=== PATIENT | male | born 1935 | race Caucasian/White ===

== ENCOUNTER 2018-05-25 11:01 | Outpatient (REF) | payer MEDICARE, OTHER, SELFPAY ==
[2018-05-25 14:08] LABS: COMMENT (LAB VIEW ONLY) 97.64 mg/dL; Microalb ug/mg Crea 101.9 ug/mg Cr
== END 2018-05-25 11:21 ==
LOC: LBN 11:01
PROVIDERS: PCP Family Medicine; Visit Provider Family Medicine
DX: E11.29 Type 2 diabetes mellitus with other diabetic kidney complication (principal)
CPT/HCPCS: 82043; 82570

== ENCOUNTER 2018-05-26 09:29 | Outpatient (CLI) | payer MEDICARE, OTHER, SELFPAY ==
[2018-05-26 10:20] LABS: Abs Immature Grans 0.02 k/cumm (0.0-0.09); Absolute Basophil Count 0.03 k/cumm (0.0-0.2); Absolute Lymphocyte Count 1.95 k/cumm (1.2-3.4); Absolute Monocyte Count 0.47 k/cumm (0.11-0.7); Absolute Neutrophil Count 3.01 k/cumm (1.2-6.7); Basophils % 0.5; Eosinophils % 3.5; HCT 46.9 % (40.0-50.0); HGB 15.5 g/dL (13.5-17.5); Immature Grans % 0.4; Lymphocytes % 34.3; Mean Corpuscular Hemoglobin 30.4 pg (27.0-33.0); Mean Platelet Volume 10.6 fL (8.0-11.0); Monocytes % 8.3; Platelet Count 227 x1000/uL (130-400); RBC Distribution Width 13.5 % (11.8-14.1); White Blood Cell Count 5.68 k/cumm (4.4-10.8)
[2018-05-26 11:40] LABS: Folate 17.5 ng/mL (8.6-20.0); TSH (W/Ref FT4) 1.19 uIU/mL (0.358-3.74); Vitamin B12 296 pg/mL (193-986)
== END 2018-05-26 09:49 ==
PROVIDERS: PCP Family Medicine; Visit Provider Family Medicine
DX: R53.83 Other fatigue (principal); I10 Essential (primary) hypertension; E11.9 Type 2 diabetes mellitus without complications; Z79.4 Long term (current) use of insulin
CPT/HCPCS: 36415; 82607; 82746; 84443; 85025

== ENCOUNTER 2020-03-27 07:45 | Outpatient (CLI) | payer MEDICARE, BC, OTHER, SELFPAY ==
[2020-04-01 11:32] LABS: SARS-CoV-2 RNA Undetected (Undetected); SARS-CoV-2 Specimen Source Nasopharynx
== END 2020-03-27 08:05 ==
PROVIDERS: PCP Family Medicine; Visit Provider Family Medicine
DX: Z11.59 Encounter for screening for other viral diseases (principal)
CPT/HCPCS: U0003

== ENCOUNTER 2021-02-27 02:10 | Outpatient (CLI) | payer MEDICARE, OTHER, SELFPAY ==
[2021-02-27 11:17] LABS: Anion Gap 10.1 mmol/L (3-11); BUN 29 mg/dL (7-18); CO2 27.9 mmol/L (21.0-32.0); CREATININE 1.3 mg/dL (0.70-1.30); Calcium 10.1 mg/dL (8.5-10.1); Chloride 103 mmol/L (98-107); Estimated GFR 52.47 (mL/min/1.73m2); Glucose 248 mg/dL (74-106); Potassium 5.7 mmol/L (3.5-5.1); Sodium 141 mmol/L (136-145)
== END 2021-02-27 02:11 | disposition home or self-care (01) ==
LOC: LBO 02:10
PROVIDERS: PCP Family Medicine; Visit Provider Family Medicine
DX: E11.9 Type 2 diabetes mellitus without complications (principal)
CPT/HCPCS: 36415; 80048

== ENCOUNTER 2021-04-23 03:25 | Outpatient (CLI) | payer MEDICARE, OTHER, SELFPAY ==
[2021-04-23 10:52] LABS: Anion Gap 10.1 mmol/L (3-11); BUN 24 mg/dL (7-18); CO2 26.9 mmol/L (21.0-32.0); CREATININE 1.3 mg/dL (0.70-1.30); Calcium 10.1 mg/dL (8.5-10.1); Chloride 104 mmol/L (98-107); Estimated GFR 52.47 (mL/min/1.73m2); Glucose 194 mg/dL (74-106); Potassium 4.7 mmol/L (3.5-5.1); Sodium 141 mmol/L (136-145)
== END 2021-04-23 03:26 | disposition home or self-care (01) ==
PROVIDERS: PCP Family Medicine; Visit Provider Family Medicine
DX: E87.5 Hyperkalemia (principal)
CPT/HCPCS: 36415; 80048

== ENCOUNTER 2021-12-17 03:16 | Outpatient (CLI) | payer MEDICARE, OTHER, SELFPAY ==
[2021-12-17 14:54] LABS: Anion Gap 9.8 mmol/L (3-11); BUN 29 mg/dL (7-18); CO2 27.2 mmol/L (21.0-32.0); CREATININE 1.2 mg/dL (0.70-1.30); Calcium 9.7 mg/dL (8.5-10.1); Chloride 104 mmol/L (98-107); Estimated GFR 57.41 (mL/min/1.73m2); Glucose 250 mg/dL (74-106); Potassium 5.1 mmol/L (3.5-5.1); Sodium 141 mmol/L (136-145); TSH (W/Ref FT4) 1.02 uIU/mL (0.36-3.74)
== END 2021-12-17 03:17 | disposition home or self-care (01) ==
PROVIDERS: PCP Family Medicine; Visit Provider Family Medicine
DX: R53.83 Other fatigue (principal); N18.9 Chronic kidney disease, unspecified
CPT/HCPCS: 36415; 80048; 84443

== ENCOUNTER 2022-02-13 13:49 | Outpatient (REF) | payer MEDICARE, OTHER, SELFPAY | END 2022-02-13 13:50 | disposition home or self-care (01) | LOC: LBN 13:49 | PROVIDERS: PCP Family Medicine; Visit Provider Physician Assistant Medical | DX: L02.611 Cutaneous abscess of right foot (principal) | CPT/HCPCS: 87070; 87205 ==

== ENCOUNTER → 2022-04-02 01:23 | Outpatient (CLI) | payer MEDICARE, BC, SELFPAY ==
--- NOTE | 2022-04-02 07:30 | DI.US_ITS ---
Exam(s) US ABDOMEN EXAM: US ABDOMEN CLINICAL HISTORY: Nausea originating in upper abdomen, nausea, R11.0 TECHNIQUE: Ultrasound abdomen performed using standard protocol. COMPARISON: US ABDOMEN ULTRASOUND (P) from 12/29/2017 FINDINGS: ABDOMINAL AORTA AND IVC: Visualized portions normal caliber. PANCREAS: Normal where visualized. LIVER: Diffuse increased echogenicity of the liver. The liver measures 20.6 cm long. Hepatopedal fl ow in the Portal Vein. GALLBLADDER:No evidence of cholelithiasis. No evidence of wall thickening. No pericholecystic fluid i dentified. There is a 2 mm echogenic focus along the wall of the gallbladder likely reflecting a tiny polyp. BILIARY SYSTEM: Common bile duct measures < 7 mm. No intrahepatic biliary ductal dilation. GUZMAN'S SIGN: Negative. KIDNEYS: Kidneys are symmetric in size. No evidence of renal calculi. No evidence of hydronephrosis. No renal mass or cyst identified. SPLEEN: Not enlarged. ASCITES: None seen. IMPRESSION: 1. Hepatic steatosis and hepatomegaly. 2. 2 mm gallbladder polyp. DATA REPOSITORY:
== END ==
PROVIDERS: PCP Family Medicine; Visit Provider Family Medicine
DX: K76.0 Fatty (change of) liver, not elsewhere classified (principal); K82.4 Cholesterolosis of gallbladder
CPT/HCPCS: 76700

== ENCOUNTER 2022-04-15 21:27 | Outpatient (CLI) | payer MEDICARE, SELFPAY ==
--- NOTE | 2022-04-15 | DI.RAD_ITS ---
Exam(s) XR FOOT RT COMPLETE EXAM: XR FOOT RT COMPLETE CLINICAL HISTORY: FOOT ULCER; RIGHT--L97.519. TECHNIQUE: 2D digital imaging was performed. Three views. COMPARISON: No exams were available for comparison FINDINGS: BONES: No acute fracture is present. No bony destructive lesion is seen. Plantar calcaneal spur. JOINTS: No dislocation present. Mild degenerative changes. SOFT TISSUE: Mild vascular calcifications. No foreign body or abnormal gas collection. IMPRESSION: Unremarkable radiographs of the right foot. DATA REPOSITORY: RADIATION DOSE DELIVERED:
[2022-04-15 21:30] LABS: Abs Immature Grans 0.03 10^3/uL (0.0-0.06); Absolute Basophil Count 0.07 10^3/uL (0.0-0.2); Absolute Eosinophil Count 0.26 10^3/uL (0.0-0.7); Absolute Lymphocyte Count 2.64 10^3/uL (1.2-3.4); Absolute Neutrophil Count 3.78 10^3/uL (1.2-6.7); Basophils % 0.9; Eosinophils % 3.4; HCT 42.4 % (40.0-50.0); HGB 13.7 g/dL (13.5-17.5); Immature Grans % 0.4; Lymphocytes % 34.8; MCH 30.2 pg (27.0-33.0); MCHC 32.3 % (32.0-36.0); MCV 93 fL (80-95); MPV 11.5 fL (8.0-11.0); Monocytes % 10.6; Neutrophils % 49.9; Platelet Count 241 10^3/uL (130-400); RBC 4.54 10^6/uL (4.36-5.78); RDW 12.8 % (11.8-14.1); RDW-SD 43.9 fL; WBC 7.58 10^3/uL (4.4-10.8)
[2022-04-15 21:38] LABS: ESR 1 mm/hr (0-20)
[2022-04-15 21:43] LABS: ALT 20 U/L (16-63); AST 18 U/L (15-37); Alkaline Phosphatase 68 U/L (46-116); Anion Gap 10.3 mmol/L (3-11); BUN 33 mg/dL (7-18); Bilirubin, Total 0.3 mg/dL (0.2-1.0); CO2 26.7 mmol/L (21.0-32.0); CREATININE 1.1 mg/dL (0.70-1.30); Calcium 9.4 mg/dL (8.5-10.1); Chloride 103 mmol/L (98-107); Glucose 162 mg/dL (74-106); Potassium 5.6 mmol/L (3.5-5.1); Sodium 140 mmol/L (136-145); Total Protein 7.2 g/dL (6.4-8.2)
== END 2022-04-15 21:28 | disposition home or self-care (01) ==
LOC: LBN 04-16 21:41
PROVIDERS: Nurse Practitioner Family; PCP Family Medicine; Visit Provider Family Medicine
DX: L97.519 Non-pressure chronic ulcer of other part of right foot with unspecified severity (principal)
CPT/HCPCS: 80053; 85652; 73630; 85025

== ENCOUNTER 2022-11-19 11:47 | Outpatient (REF) | payer MEDICARE, OTHER, SELFPAY ==
[2022-11-19 15:42] LABS: COVID-19 PCR Negative (Negative); Influenza A PCR Negative (Negative); Influenza B PCR Negative (Negative); RSV PCR Negative (Negative)
[2022-11-19 15:43] LABS: Source Nasopharynx
== END 2022-11-19 11:48 | disposition home or self-care (01) ==
LOC: LBN 11:47
PROVIDERS: PCP Family Medicine; Visit Provider Nurse Practitioner
DX: R05.8 Other specified cough (principal); R09.89 Other specified symptoms and signs involving the circulatory and respiratory systems; Z20.822 Contact with and (suspected) exposure to COVID-19
CPT/HCPCS: 87637

== ENCOUNTER 2022-11-19 11:49 | Outpatient (CLI) | payer MEDICARE, OTHER, SELFPAY ==
--- NOTE | 2022-11-19 11:15 | DI.RAD_ITS ---
Exam(s) XR CHEST 2V PA LATERAL EXAM: XR CHEST 2V PA LATERAL CLINICAL HISTORY: cough for 2 weeks, worsening COUGH R05.9 FATIGUE R53.83 TECHNIQUE: 2D digital imaging was performed of the chest. Images were obtained. PA and lateral v iews were obtained. COMPARISON: CR CHEST 2 VIEWS PA,LAT from 09/12/2012 FINDINGS: MEDIASTINUM: Normal. HEART: Normal. PULMONARY VASCULATURE: Normal. LUNGS: The lungs are hyperinflated suggesting underlying COPD. There are increased lung markings in the left base medially which may represent atelectasis or infiltrate. PLEURAL SPACE: No pleural effusion or pneumothorax. BONE:Within normal limits for the patient's age. OTHER FINDINGS:Normal. IMPRESSION: 1. Atelectasis, scarring or infiltrate in the medial left lung base. 2. COPD. DATA REPOSITORY: RADIATION DOSE DELIVERED:
== END 2022-11-19 12:09 ==
PROVIDERS: PCP Family Medicine; Visit Provider Nurse Practitioner
DX: R05.8 Other specified cough (principal); R53.83 Other fatigue; J44.9 Chronic obstructive pulmonary disease, unspecified; R91.8 Other nonspecific abnormal finding of lung field
CPT/HCPCS: 71046

== ENCOUNTER 2022-12-18 17:55 | Outpatient (CLI) | payer MEDICARE, OTHER, SELFPAY ==
--- NOTE | 2022-12-18 14:30 | DI.RAD_ITS ---
Exam(s) XR KNEE RT 3V AP,LAT,ARTUR EXAM: XR KNEE RT 3V AP,LAT,ARTUR INDICATION: landed on knees M25.561 W19.XXXA FALL Z96.653 ARTIFICIAL KNEE. COMPARISON: CR RIGHT KNEE LIMITED 1 OR 2 VIEW from 05/25/2013 TECHNIQUE: 2D digital imaging was performed. Two views. FINDINGS: There has been no change in the alignment of the total knee prosthesis. No suspicious bony lucencies are identified. No visible joint effusion. Vascular calcifications again noted. DATA REPOSITORY: RADIATION DOSE DELIVERED:
--- NOTE | 2022-12-18 14:30 | DI.RAD_ITS ---
Exam(s) XR KNEE LT 3V AP,LAT,ARTUR EXAM: XR KNEE LT 3V AP,LAT,ARTUR INDICATION: bilateral knee pain s/p fall 12/11/22 M25.562 W19.XXXA FALL Z96.653. COMPARISON: CR XR KNEE RT 3V AP,LAT,ARTUR from 12/18/2022 TECHNIQUE: 2D digital imaging was performed. Three views. FINDINGS: There has been no change in the alignment of the total knee prosthesis. There is no evidence of frac ture or joint effusion. Vascular calcifications again noted. Impression: No acute abnormality. DATA REPOSITORY: RADIATION DOSE DELIVERED:
== END 2022-12-18 18:15 ==
PROVIDERS: PCP Family Medicine; Visit Provider Nurse Practitioner
DX: M25.561 Pain in right knee (principal); M25.562 Pain in left knee; Z96.653 Presence of artificial knee joint, bilateral; Z91.81 History of falling
CPT/HCPCS: 73562

== ENCOUNTER 2023-01-18 08:35 | Emergency (ER) | payer MEDICARE, OTHER, SELFPAY ==
[2023-01-18 08:38] VITALS: BP 134/69; PULSE 78; RESP 18; TEMP 36.5; O2SAT 99
--- NOTE | 2023-01-18 09:05 | W.ED.GENAD ---
Discharge Plan Discharge Details Chief Complaint: Cellulitis Clinical Impression: Open wound of left lower extremity Primary Care Provider: Gilbert Hudson ED Provider: Abe Gutierres Home Meds and New Rx's Prescriptions: Continued (DME) lancets [OneTouch Delica Lancets] 33 gauge misc 1 ea Miscellaneous DAILY Qty: 100 3RF Rx Instructions: to check BS for DM E11.9 management to keep A1c <8. semaglutide 0.25 mg or 0.5 mg(2 mg/1.5 mL) pen injector 0.25 mg subcut QWEEK Qty: 1.5 0RF Hold Instructions: Home Medication placed on hold at Doctor's office Rx Instructions: for 4 doses (DME) slippers See Rx Instructions .Route .MEDSUPPLY Qty: 1 1RF Rx Instructions: Patient had fall, slipped. Bled onto slippers, needs new pair. Systane Ultra 0.4-0.3 % drops 1 drp OP QID PRN Rx Instructions: per after visit summary 03/23/20 [facility] losartan 25 mg tablet 25 mg PO BID Qty: 180 3RF Rx Instructions: for bp control under 140/80 Novolin N NPH U-100 Insulin 100 unit/mL suspension See Rx Instructions SC .COMPLEX Qty: 40 12RF Rx Instructions: subcut t10 units qnoon and 50 units qhs; To keep HbA1c below 6.5 gemfibrozil 600 mg tablet 600 mg PO BID Qty: 180 3RF Rx Instructions: for lipids and vascular disease metformin 500 mg tablet extended release 24hr 1,000 mg PO BID Qty: 360 3RF metoprolol tartrate 25 mg tablet 12.5 mg PO BID Qty: 90 3RF Rx Instructions: 0.5 of a 25 mg tablet, twice daily, for BP (DME) insulin syringe-needle U-100 [BD Insulin Syringe Ultra-Fine] 0.5 mL 31 gauge x 5/16 syringe See Dose Instructions .ROUTE .MEDSUPPLY Qty: 100 6RF Dose Instruction: As directed Rx Instructions: to administer Novolin N daily at 7 pm (DME) blood sugar diagnostic Strip 1 ea Miscellaneous BID Qty: 200 11RF Rx Instructions: For DM E11.39 to test blood sugar BID and maintain A1C less than 7 aspirin [Cadence Low Dose Aspirin] 81 MG tablet,delayed release (DR/EC) 81 mg PO DAILY Discharge Instructions Additional Instructions: You were seen in the emergency department for your left lower extremity wound which was redressed. If you have any fevers or any foul-smelling drainage or pus from your wound please return to the emergency department. Please follow-up with wound care team as previously scheduled tomorrow. Discharge Data Discharge Date/Time-TO BE ENTERED AT DEPARTURE: 01/18/23 09:51 Medical Decision Making This is an overall very well-appearing normothermic and not tachycardic 87-year-old male with concern over increased drainage from his left lower extremity wound with signs of superinfection and no systemic symptoms of illness. Patient has close outpatient wound care follow-up so his wound was redressed in the emergency department and he was discharged with return indications including any foul-smelling drainage from his wound any signs of pus, and any signs of systemic illness such as fevers and chills. He had no recurrent falls to suggest benefit from repeat plain films. He had no crepitance nor pain out of proportion to suggest necrotizing soft tissue infection. His feet were warm and well-perfused so I was not concerned for acute vascular insult. His wound on the anterior aspect of the left tibia is certainly in a watershed area and concerning for the possibility of arterial insufficiency complicated by his diabetes. If it has not been completed in the past he may be a candidate for lower extremity angiogram with runoffs but I do not feel that he requires this emergently in the emergency department as I am not concerned for critical limb ischemia. He understood his return indications. His wound was redressed in the emergency department and he was discharged with wound clinic follow-up. HPI General Date/Time Provider Initiated Documentation: 01/18/23 08:50. HPI Narrative: This is an 87-year-old male with a history of atherosclerotic cardiovascular disease and type 2 diabetes controlled on oral medications who follows with wound care in setting of bilateral lower extremity wounds now in the emergency department in setting of increased drainage from his left lower extremity wound over the past 24 hours. Patient reports that he initially fell approximately 1 month ago. X-rays were obtained at that time. Yesterday he noted that he had increased drainage from his left lower extremity wound. He noticed that this continues this morning. He does not have wound care clinic follow-up until tomorrow morning so he came in the emergency department to have his wound redressed. The drainage his drainage was clear. He denies any foul-smelling drainage. He has not had any increased pain in his left foot. He is not having any pus draining from his left lower extremity wound. He has had no fevers chills nausea vomiting chest pain or shortness of breath. Related Data Home Medications Medication Instructions Recorded Confirmed aspirin 81 mg tablet,delayed 81 mg PO DAILY 05/17/13 01/16/23 release (Cadence Low Dose Aspirin) lancets 33 gauge (Skim.itTouch Delica #100 ea 05/26/19 01/16/23 Lancets) peg 400-propylene glycol 0.4 %-0.3 1 drp ophthalmic (eye) QID PRN 03/26/20 01/16/23 % eye drops (Systane Ultra) losartan 25 mg tablet 25 mg PO BID #180 tab-caps 02/27/22 01/16/23 insulin NPH isoph U-100 human 100 See Rx Instructions subcut 03/25/22 01/16/23 unit/mL subcutaneous suspension .COMPLEX #40 mL (Novolin N NPH U-100 Insulin isophane) gemfibrozil 600 mg tablet 600 mg PO BID #180 tab-caps 04/15/22 01/16/23 semaglutide 0.25 mg or 0.5 mg (2 0.25 mg (0.2 mL) subcut QWEEK #1.5 10/07/22 01/16/23 mg/1.5 mL) subcutaneous pen mL injector metformin 500 mg tablet,extended 1,000 mg PO BID #360 tabs 11/06/22 01/16/23 release 24hr metoprolol tartrate 25 mg tablet 12.5 mg PO BID #90 tabs 11/18/22 01/16/23 insulin syringe-needle U-100 0.5 #100 ea 12/08/22 01/16/23 mL 31 gauge x 5/16 (BD Insulin Syringe Ultra-Fine) blood sugar diagnostic #200 strips 12/18/22 01/16/23 slippers #1 ea 12/18/22 01/16/23 Previous Rx's Medication Instructions Recorded lancets 33 gauge (OneTouch Delica #100 ea 05/26/19 Lancets) losartan 25 mg tablet 25 mg PO BID #180 tab-caps 02/27/22 insulin NPH isoph U-100 human 100 See Rx Instructions subcut 03/25/22 unit/mL subcutaneous suspension .COMPLEX #40 mL (Novolin N NPH U-100 Insulin isophane) gemfibrozil 600 mg tablet 600 mg PO BID #180 tab-caps 04/15/22 semaglutide 0.25 mg or 0.5 mg (2 0.25 mg (0.2 mL) subcut QWEEK #1.5 10/07/22 mg/1.5 mL) subcutaneous pen mL injector metformin 500 mg tablet,extended 1,000 mg PO BID #360 tabs 11/06/22 release 24hr metoprolol tartrate 25 mg tablet 12.5 mg PO BID #90 tabs 11/18/22 insulin syringe-needle U-100 0.5 #100 ea 12/08/22 mL 31 gauge x 5/16 (BD Insulin Syringe Ultra-Fine) blood sugar diagnostic #200 strips 12/18/22 slippers #1 ea 12/18/22 Allergies Allergy/AdvReac Type Severity Reaction Status Date / Time omeprazole AdvReac Intermediate diarrhea Verified 01/16/23 11:46 atorvastatin calcium AdvReac muscle pain Verified 01/16/23 11:46 [From Lipitor] ezetimibe AdvReac fatique, Verified 01/16/23 11:46 [From Vytorin 10-10] blurred vision lisinopril AdvReac cough Verified 01/16/23 11:46 lovastatin AdvReac muscle pain Verified 01/16/23 11:46 pravastatin AdvReac muscle pain Verified 01/16/23 11:46 simvastatin AdvReac fatique, Verified 01/16/23 11:46 [From Vytorin 10-10] blurred vision General Stated Complaint: Cellulitis LIBIA: 4 PFSH All Active Problems (Updated 01/18/23 @ 09:24 by Abe Gutierres MD) Open wound of left lower extremity (Acute) Onychomycosis of multiple toenails with type 2 diabetes mellitus (Acute 12/09/22) Ingrowing nail (Acute 12/09/22) Nail dystrophy (Acute 12/09/22) Pseudophakia (Acute) Posterior vitreous detachment, left eye (Acute) Age-related macular degeneration, dry (Chronic) left eye, early right eye without fld both eyes 01/2022 Hepatic steatosis (Acute) Chronic kidney disease (Chronic) Other atherosclerosis of upper [place] arteries of extremities, bilateral legs (Acute) Nonproliferative diabetic retinopathy without macular edema associated with type 2 diabetes mellitus (Acute) Nocturnal leg cramps (Acute) Seborrheic keratoses (Acute) 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) Low back pain (Acute 09/17/11) Activity intolerance related to fatigue (Acute 09/17/11) Cortical senile cataract (Acute 09/17/11) Localized osteoarthrosis, lower leg (Acute 09/17/11) PVD (peripheral vascular disease) (Acute 09/17/11) Primary malignant neoplasm of prostate (Acute 03/06/97) Sleep disorder (Chronic 07/15/13) Never okay, due to awakening 2AM 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 Clarke 05-25-2013 History of - myocardial infarction (Chronic) Silent PR Diabetes mellitus type 2 (Chronic) Hyperlipidemia (Chronic) PVC's (Chronic) Medical History (Updated 01/18/23 @ 09:24 by Abe Gutierres MD) ASCVD (arteriosclerotic cardiovascular disease) with MPI 08/21/22 also noted by industrial recruiter at visit. Cataracts, both eyes Colon adenoma Depression Diabetes type 2, controlled Last HgA1C 7.1 DJD (degenerative joint disease) History of malignant neoplasm of prostate HTN (hypertension) Hyperlipidemia Low back pain Mild nonproliferative diabetic retinopathy Obesity Prostate cancer PVD (peripheral vascular disease) scarring on chest X-ray Tobacco quit date established March 2016 Surgical History (Updated 07/25/22 @ 09:17 by Sheryl Lopez RN) Cataract, left eye (03/13/16) Cristal Torres MD Colonoscopy - IV Sedation [id number] Colonoscopy - MAC (05/09/16) EGD - MAC (08/25/16) Extraction of cataract (02/01/15) Right eye; Dr. Cristal Torres History of surgery Left total knee. Prostatectomy for prostate cancer ORIF left hymerus that was done many years agol. T & A done as a child. I & D perianal abscess (05/07/15) Dr. Beverly Daly Prostectomy, Suprapubic (03/06/97) Dr Dexter, prostate cancer Replacement of total knee joint Right- cemented 05/25/13 Dr. Clarke Lt. -2008 Dr. Clarke synvisc injection rt knee Family History Mother , age 63 Heart disease Father Stroke Social History (Updated 12/16/21 @ 11:28 by Indy Ladd LPN) Smoking/Tobacco Use Status: Former Tobacco Use Tobacco: How many years used: 25 Smoking risk assessment performed?: Yes Alcohol Intake: never Drug use: Never Substance use type: does not use Household members: none Number of Children: 0 Communication Needs: Corrective Lenses Do you need help understanding health information?: Rarely How often do you talk on the phone with friends or family?: twice per week How often do you get together with friends or relatives?: twice per week Panel score (0-1 are the most socially isolated patients): 1 What type of physical activity do you participate in: regular exercise and other Details: exercises 3x/week Frequency: 3-4 times per week Seatbelt use: always 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 Head: Normocephalic, atraumatic. Eye: Pupils equal, round reactive to light. Extraocular eye movements intact. No conjunctival injection. No scleral icterus. Ear, nose, mouth, throat: Grossly normal inspection. Normal voice, handling secretions normally. Neck: Trachea midline. Cardiovascular: Well-perfused distal extremities. Respiratory: Nonlabored respiration. Gastrointestinal: Nondistended abdomen. Musculoskeletal: No edema. Moving all 4 extremities spontaneously. Skin: On the left lower extremity, anterior aspect of the tibia there is an approximately 2 x 2 centimeter open wound with no surrounding erythema nor crepitance. Distal left lower extremity warm and well-perfused with cap refill less than 2 seconds in the left toes. Photo of left lower extremity wound as follows: Neurologic: Alert and appropriate, no apparent acute deficits. Psychiatric: Mood and manner are appropriate. Grooming and personal hygiene are appropriate. Course Vital Signs Vital signs: Vital Signs Temperature 36.5 C 01/18/23 08:38 Pulse 78 01/18/23 08:38 Respiratory Rate 18 01/18/23 08:38 Blood Pressure 134/69 01/18/23 08:38 Pulse Oximetry 99 01/18/23 08:38 Temperature 36.5 C 01/18/23 08:38 Temperature Source Oral 01/18/23 08:38 Pulse 78 01/18/23 08:38 Respiratory Rate 18 01/18/23 08:38 Blood Pressure 134/69 01/18/23 08:38 Pulse Oximetry 99 01/18/23 08:38 Oxygen Delivery Method Room Air 01/18/23 08:38 Oxygen Flow Rate 0 01/18/23 08:38 Pain Level 0 01/18/23 08:38
[2023-01-18 09:48] VITALS: BP 132/61; PULSE 82; RESP 18; O2SAT 97
== END 2023-01-18 09:51 | disposition home or self-care (01) ==
PROVIDERS: Emergency Provider Emergency Medicine; PCP Family Medicine
DX: E11.9 Type 2 diabetes mellitus without complications; Z79.84 Long term (current) use of oral hypoglycemic drugs; W19.XXXA Unspecified fall, initial encounter; I10 Essential (primary) hypertension; S81.802A Unspecified open wound, left lower leg, initial encounter; L03.116 Cellulitis of left lower limb
CPT/HCPCS: 99281; 99282

== ENCOUNTER 2023-02-06 15:31 | Emergency (ER) | payer MEDICARE, OTHER, SELFPAY ==
[2023-02-06 15:31] VITALS: BP 153/61; PULSE 110; RESP 18; TEMP 37; O2SAT 97
[2023-02-06 15:57] VITALS: RESP 20
--- NOTE | 2023-02-06 16:02 | ED.GENADUL_ITS ---
Discharge Plan Disposition Patient Disposition: Home Discharge Details Chief Complaint: Vascular Clinical Impression: Bleeding from wound Primary Care Provider: Gilbert Hudson ED Provider: Nazario Marcano Home Meds and New Rx's Prescriptions: No Action (DME) lancets [OneTouch Delica Lancets] 33 gauge misc 1 ea Miscellaneous DAILY Qty: 100 3RF Rx Instructions: to check BS for DM E11.9 management to keep A1c <8. semaglutide 0.25 mg or 0.5 mg(2 mg/1.5 mL) pen injector 0.25 mg subcut QWEEK Qty: 1.5 0RF Hold Instructions: Home Medication placed on hold at Doctor's office Rx Instructions: for 4 doses (DME) slippers See Rx Instructions .Route .MEDSUPPLY Qty: 1 1RF Rx Instructions: Patient had fall, slipped. Bled onto slippers, needs new pair. Systane Ultra 0.4-0.3 % drops 1 drp OP QID PRN Rx Instructions: per after visit summary 03/23/20 [facility] losartan 25 mg tablet 25 mg PO BID Qty: 180 3RF Rx Instructions: for bp control under 140/80 Novolin N NPH U-100 Insulin 100 unit/mL suspension See Rx Instructions SC .COMPLEX Qty: 40 12RF Rx Instructions: subcut t10 units qnoon and 50 units qhs; To keep HbA1c below 6.5 gemfibrozil 600 mg tablet 600 mg PO BID Qty: 180 3RF Rx Instructions: for lipids and vascular disease metformin 500 mg tablet extended release 24hr 1,000 mg PO BID Qty: 360 3RF metoprolol tartrate 25 mg tablet 12.5 mg PO BID Qty: 90 3RF Rx Instructions: 0.5 of a 25 mg tablet, twice daily, for BP (DME) insulin syringe-needle U-100 [BD Insulin Syringe Ultra-Fine] 0.5 mL 31 gauge x 5/16 syringe See Dose Instructions .ROUTE .MEDSUPPLY Qty: 100 6RF Dose Instruction: As directed Rx Instructions: to administer Novolin N daily at 7 pm (DME) blood sugar diagnostic Strip 1 ea Miscellaneous BID Qty: 200 11RF Rx Instructions: For DM E11.39 to test blood sugar BID and maintain A1C less than 7 aspirin [Cadence Low Dose Aspirin] 81 MG tablet,delayed release (DR/EC) 81 mg PO DAILY Discharge Instructions Instructions: Chronic Wound Care (ED) Additional Instructions: Please follow-up with wound care team. Please return to the emergency department for any worsening symptoms Medical Decision Making 87-year-old male history of diabetes, peripheral neuropathy, longstanding peripheral vascular disease, poorly healing pretibial soft tissue wound, shallow based ulceration to pretibial soft tissue, venous oozing at central portion, no arterial bleeding or venous burning. DP pulse intact, motor function limb intact, sensation intact however decreased in peripheral lower extremity patient endorses is this is his baseline. Surgicel and pressure dressing has been applied to wound. Will observe for saturation of gauze. Patient does not saturate through dressing he will be discharged home with close follow-up at wound clinic. 17: 53 patient rest comfortably no acute distress hemostatic. Wound care team will evaluate him Thursday or Thursday. Patient given home care instructions and return precautions HPI General Date/Time Provider Initiated Documentation: 02/06/23 15:43 . HPI Narrative: 87-year-old male history of diabetes, peripheral neuropathy, poorly healing lower extremity wounds, followed at wound clinic over the past several months to years, wound dressing changed today in office resulting in venous oozing and then spurting of blood from wound. Pressure dressing applied since emergency department for evaluation. Related Data Home Medications Medication Instructions Recorded Confirmed aspirin 81 mg tablet,delayed 81 mg PO DAILY 05/17/13 02/06/23 release (Cadence Low Dose Aspirin) lancets 33 gauge (OneTouch Delica #100 ea 05/26/19 02/06/23 Lancets) peg 400-propylene glycol 0.4 %-0.3 1 drp ophthalmic (eye) QID PRN 03/26/20 02/06/23 % eye drops (Systane Ultra) losartan 25 mg tablet 25 mg PO BID #180 tab-caps 02/27/22 02/06/23 insulin NPH isoph U-100 human 100 See Rx Instructions subcut 03/25/22 02/06/23 unit/mL subcutaneous suspension .COMPLEX #40 mL (Novolin N NPH U-100 Insulin isophane) gemfibrozil 600 mg tablet 600 mg PO BID #180 tab-caps 04/15/22 02/06/23 semaglutide 0.25 mg or 0.5 mg (2 0.25 mg (0.2 mL) subcut QWEEK #1.5 10/07/22 02/06/23 mg/1.5 mL) subcutaneous pen mL injector metformin 500 mg tablet,extended 1,000 mg PO BID #360 tabs 11/06/22 02/06/23 release 24hr metoprolol tartrate 25 mg tablet 12.5 mg PO BID #90 tabs 11/18/22 02/06/23 insulin syringe-needle U-100 0.5 #100 ea 12/08/22 02/06/23 mL 31 gauge x 5/16 (BD Insulin Syringe Ultra-Fine) blood sugar diagnostic #200 strips 12/18/22 02/06/23 slippers #1 ea 12/18/22 02/06/23 Previous Rx's Medication Instructions Recorded lancets 33 gauge (OneTouch Delica #100 ea 05/26/19 Lancets) losartan 25 mg tablet 25 mg PO BID #180 tab-caps 02/27/22 insulin NPH isoph U-100 human 100 See Rx Instructions subcut 03/25/22 unit/mL subcutaneous suspension .COMPLEX #40 mL (Novolin N NPH U-100 Insulin isophane) gemfibrozil 600 mg tablet 600 mg PO BID #180 tab-caps 04/15/22 semaglutide 0.25 mg or 0.5 mg (2 0.25 mg (0.2 mL) subcut QWEEK #1.5 10/07/22 mg/1.5 mL) subcutaneous pen mL injector metformin 500 mg tablet,extended 1,000 mg PO BID #360 tabs 11/06/22 release 24hr metoprolol tartrate 25 mg tablet 12.5 mg PO BID #90 tabs 11/18/22 insulin syringe-needle U-100 0.5 #100 ea 12/08/22 mL 31 gauge x 5/16 (BD Insulin Syringe Ultra-Fine) blood sugar diagnostic #200 strips 12/18/22 slippers #1 ea 12/18/22 Allergies Allergy/AdvReac Type Severity Reaction Status Date / Time omeprazole AdvReac Intermediate diarrhea Verified 02/06/23 15:00 atorvastatin calcium AdvReac muscle pain Verified 02/06/23 15:00 [From Lipitor] ezetimibe AdvReac fatique, Verified 02/06/23 15:00 [From Vytorin 10-10] blurred vision lisinopril AdvReac cough Verified 02/06/23 15:00 lovastatin AdvReac muscle pain Verified 02/06/23 15:00 pravastatin AdvReac muscle pain Verified 02/06/23 15:00 simvastatin AdvReac fatique, Verified 02/06/23 15:00 [From Vytorin 10-10] blurred vision General Stated Complaint: Vascular LIBIA: 3 Review of Systems Narrative: Review of Systems Constitutional: negative Eyes: negative ENT: negative Cardiovascular: negative Respiratory: negative Gastrointestinal: negative : negative Musculoskeletal: negative Skin: Bleeding wound Neurologic: negative Psych: negative PFSH All Active Problems (Updated 02/06/23 @ 17:55 by Nazario Marcano MD) Bleeding from wound (Acute) Diabetic foot ulcer (Acute) Open wounds involving multiple regions of lower extremity without complication (Acute) Open wound of left lower extremity (Acute) Onychomycosis of multiple toenails with type 2 diabetes mellitus (Acute 12/09/22) Ingrowing nail (Acute 12/09/22) Nail dystrophy (Acute 12/09/22) Pseudophakia (Acute) Posterior vitreous detachment, left eye (Acute) Age-related macular degeneration, dry (Chronic) left eye, early right eye without fld both eyes 01/2022 Hepatic steatosis (Acute) Chronic kidney disease (Chronic) Other atherosclerosis of [place] arteries of extremities, bilateral legs (Acute) Nonproliferative diabetic retinopathy without macular edema associated with type 2 diabetes mellitus (Acute) Nocturnal leg cramps (Acute) Seborrheic keratoses (Acute) 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) Low back pain (Acute 09/17/11) Activity intolerance related to fatigue (Acute 09/17/11) Cortical senile cataract (Acute 09/17/11) Localized osteoarthrosis, lower leg (Acute 09/17/11) PVD (peripheral vascular disease) (Acute 09/17/11) Primary malignant neoplasm of prostate (Acute 03/06/97) Sleep disorder (Chronic 07/15/13) Never okay, due to awakening 2AM 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 Clarke 05-25-2013 History of - myocardial infarction (Chronic) [place] Diabetes mellitus type 2 (Chronic) Hyperlipidemia (Chronic) PVC's (Chronic) Medical History (Updated 02/06/23 @ 17:55 by Nazario Marcano MD) ASCVD (arteriosclerotic cardiovascular disease) with MPI 08/21/22 also noted by hemmer lockstitch at visit. Cataracts, both eyes Colon adenoma Depression Diabetes type 2, controlled Last HgA1C 7.1 DJD (degenerative joint disease) History of malignant neoplasm of prostate HTN (hypertension) Hyperlipidemia Low back pain Mild nonproliferative diabetic retinopathy Obesity Prostate cancer PVD (peripheral vascular disease) scarring on chest X-ray Tobacco quit date established March 2016 Surgical History (Updated 07/25/22 @ 09:17 by Sheryl Lopez RN) Cataract, left eye (03/13/16) Cristal Torres MD Colonoscopy - IV Sedation [id number] Colonoscopy - MAC (05/09/16) EGD - MAC (08/25/16) Extraction of cataract (02/01/15) Right eye; Dr. Cristal Torres History of surgery Left total knee. Prostatectomy for prostate cancer ORIF left hymerus that was done many years agol. T & A done as a child. I & D perianal abscess (05/07/15) Dr. Beverly Daly Prostectomy, Suprapubic (03/06/97) Dr Dexter, prostate cancer Replacement of total knee joint Right- cemented 05/25/13 Dr. Clarke Lt. -2008 Dr. Clarke synvisc injection rt knee Family History Mother , age 63 Heart disease Father Stroke Social History (Updated 12/16/21 @ 11:28 by Indy Ladd LPN) Smoking/Tobacco Use Status: Former Tobacco Use Tobacco: How many years used: 25 Smoking risk assessment performed?: Yes Alcohol Intake: never Drug use: Never Substance use type: does not use Household members: none Number of Children: 0 Communication Needs: Corrective Lenses Do you need help understanding health information?: Rarely How often do you talk on the phone with friends or family?: twice per week How often do you get together with friends or relatives?: twice per week Panel score (0-1 are the most socially isolated patients): 1 What type of physical activity do you participate in: regular exercise and other Details: exercises 3x/week Frequency: 3-4 times per week Seatbelt use: always Drive intox or ride w/intox driver education instructor: No Working smoke detector in home: Yes Fire extinguisher in home: Yes Carbon monox detector in home: Yes Do you feel safe at home: Yes Do you feel safe in your relationship?: Yes Exam Narrative Exam Narrative: Physical Examination General: alert, awake, cooperative, resting comfortably, no acute distress HEENT: normocephalic, atraumatic; PERRL, EOM intact, conjunctiva normal; no nasal discharge; moist mucous membranes, oral and pharyngeal mucosa normal, tolerating secretions Neck: supple, trachea midline; full ROM Chest: normal to inspection GI: abdomen soft, non-tender, non-distended; no palpable mass or hepatosplenomegaly Neuro: AAOx3, normal speech, moving all extremities Extremities: 5 cm shallow poorly healing leg ulcer pretibial soft tissue, localized venous oozing, no arterial bleeding or venous spurting; chronic skin changes of longstanding peripheral vascular disease, palpable DP pulse Psych: Appropriate mood and affect Course Vital Signs Vital signs: Vital Signs Temperature 37.0 C 02/06/23 15:31 Pulse 110 H 02/06/23 15:31 Respiratory Rate 18 02/06/23 15:31 Blood Pressure 153/61 H 02/06/23 15:31 Pulse Oximetry 97 02/06/23 15:31 Temperature 37.0 C 02/06/23 15:31 Temperature Source Oral 02/06/23 15:31 Pulse 110 H 02/06/23 15:31 Respiratory Rate 20 02/06/23 15:57 Respiratory Effort Normal, Non-Labored 02/06/23 15:57 Respiratory Depth Normal 02/06/23 15:57 Respiratory Pattern Normal 02/06/23 15:57 Blood Pressure 153/61 H 02/06/23 15:31 Pulse Oximetry 97 02/06/23 15:31 Oxygen Delivery Method Room Air 02/06/23 15:31 Oxygen Flow Rate 0 02/06/23 15:31 Pain Level 2 02/06/23 15:31
[2023-02-06] MEDS: Cellulose,Oxidized 2X3 PKT 1 EACH MC (16:03)
[2023-02-06] MEDS: Acetaminophen 325 MG TAB (18:12)
[2023-02-06 18:13] VITALS: BP 168/76; PULSE 81; RESP 18; O2SAT 97
--- NOTE | 2023-02-06 18:18 | NUR.NOTE ---
verbal order per MD Ellison for 650mg PO Tylenol.
== END 2023-02-06 18:12 | disposition home or self-care (01) ==
PROVIDERS: Emergency Provider Emergency Medicine; PCP Family Medicine
DX: S81.801A Unspecified open wound, right lower leg, initial encounter (principal); S81.802A Unspecified open wound, left lower leg, initial encounter; E11.40 Type 2 diabetes mellitus with diabetic neuropathy, unspecified; E11.622 Type 2 diabetes mellitus with other skin ulcer
CPT/HCPCS: 99283

== ENCOUNTER 2023-02-26 15:28 | Outpatient (REF) | payer MEDICARE, OTHER, SELFPAY | END 2023-02-26 15:29 | disposition home or self-care (01) | LOC: LBN 15:28 | PROVIDERS: PCP Family Medicine; Visit Provider Nurse Practitioner | DX: E11.9 Type 2 diabetes mellitus without complications; I83.018 Varicose veins of right lower extremity with ulcer other part of lower leg; I83.022 Varicose veins of left lower extremity with ulcer of calf; L97.221 Non-pressure chronic ulcer of left calf limited to breakdown of skin | CPT/HCPCS: 87077; 87070; 87186 ==

== ENCOUNTER 2023-04-01 11:22 | Emergency (ER) | payer MEDICARE, BC, OTHER, SELFPAY ==
[2023-04-01 11:23] VITALS: BP 119/66; PULSE 97; RESP 16; TEMP 36; O2SAT 98
[2023-04-01] MEDS: Cellulose,Oxidized 2X3 PKT 1 EACH MC (11:40)
--- NOTE | 2023-04-01 12:15 | ED.GENADUL_ITS ---
Discharge Plan Disposition Patient Disposition: Home Discharge Details Chief Complaint: Laceration Clinical Impression: Leg wound, right Primary Care Provider: Gilbert Hudson ED Provider: Nazario Marcano Home Meds and New Rx's Prescriptions: No Action (DME) lancets [OneTouch Delica Lancets] 33 gauge misc 1 ea Miscellaneous DAILY Qty: 100 3RF Rx Instructions: to check BS for DM E11.9 management to keep A1c <8. (DME) slippers See Rx Instructions .Route .MEDSUPPLY Qty: 1 1RF Rx Instructions: Patient had fall, slipped. Bled onto slippers, needs new pair. (DME) compr.stocking,thigh,reg,x-lrg Misc See Rx Instructions .Route Qty: 12 0RF Rx Instructions: As directed Systane Ultra 0.4-0.3 % drops 1 drp OP QID PRN Rx Instructions: per after visit summary 03/23/20 [facility] losartan 25 mg tablet 25 mg PO BID Qty: 180 3RF Rx Instructions: for bp control under 140/80 Novolin N NPH U-100 Insulin 100 unit/mL suspension See Rx Instructions SC .COMPLEX Qty: 40 12RF Rx Instructions: subcut t10 units qnoon and 50 units qhs; To keep HbA1c below 6.5 gemfibrozil 600 mg tablet 600 mg PO BID Qty: 180 3RF Rx Instructions: for lipids and vascular disease metformin 500 mg tablet extended release 24hr 1,000 mg PO BID Qty: 360 3RF metoprolol tartrate 25 mg tablet 12.5 mg PO BID Qty: 90 3RF Rx Instructions: 0.5 of a 25 mg tablet, twice daily, for BP (DME) insulin syringe-needle U-100 [BD Insulin Syringe Ultra-Fine] 0.5 mL 31 gauge x 5/16 syringe See Dose Instructions .ROUTE .MEDSUPPLY Qty: 100 6RF Dose Instruction: As directed Rx Instructions: to administer Novolin N daily at 7 pm (DME) blood sugar diagnostic Strip 1 ea Miscellaneous BID Qty: 200 11RF Rx Instructions: For DM E11.39 to test blood sugar BID and maintain A1C less than 7 ciprofloxacin HCl 250 mg tablet 250 mg PO BID Qty: 14 0RF gabapentin 300 mg capsule 300 mg PO TID Qty: 90 0RF Rx Instructions: Start 1 tab QD; increase to q12 if tolerated after 3 days, then increase to q8 after 3 more aspirin [Cadence Low Dose Aspirin] 81 MG tablet,delayed release (DR/EC) 81 mg PO DAILY Discharge Instructions Instructions: Wound Healing and Your Diet (ED) Additional Instructions: Please follow-up with your primary care physician, wound care team and hyperbaric center. Please return to the emergency department for any worsening symptoms Medical Decision Making 87-year-old male with poorly healing wound to right lower extremity presents with bleeding from wound, currently hemostatic, well granulated noninfected area of skin, warm well perfused extremity. No signs of active hemorrhage or hemodynamic instability. Surgicel dressing applied. Pressure dressing applied. Patient to follow-up closely with wound care and hyperbaric center. Given home care instructions and return precaution HPI General Date/Time Provider Initiated Documentation: 04/01/23 11:33 . HPI Narrative: 87-year-old male chronic wound to right lower extremity presents with bleeding to this wound, has appointment to follow-up with hyperbaric center in the region, wound wrapped for arrival now hemostatic. No lightheadedness or other systemic signs of illness Related Data Home Medications Medication Instructions Recorded Confirmed aspirin 81 mg tablet,delayed 81 mg PO DAILY 05/17/13 03/23/23 release (Cadence Low Dose Aspirin) lancets 33 gauge (OneTouch Delica #100 ea 05/26/19 03/23/23 Lancets) peg 400-propylene glycol 0.4 %-0.3 1 drp ophthalmic (eye) QID PRN 03/26/20 03/23/23 % eye drops (Systane Ultra) losartan 25 mg tablet 25 mg PO BID #180 tab-caps 02/27/22 03/23/23 insulin NPH isoph U-100 human 100 See Rx Instructions subcut 03/25/22 03/23/23 unit/mL subcutaneous suspension .COMPLEX #40 mL (Novolin N NPH U-100 Insulin isophane) gemfibrozil 600 mg tablet 600 mg PO BID #180 tab-caps 04/15/22 03/23/23 metformin 500 mg tablet,extended 1,000 mg PO BID #360 tabs 11/06/22 03/23/23 release 24hr metoprolol tartrate 25 mg tablet 12.5 mg PO BID #90 tabs 11/18/22 03/23/23 insulin syringe-needle U-100 0.5 #100 ea 12/08/22 03/23/23 mL 31 gauge x 5/16 (BD Insulin Syringe Ultra-Fine) blood sugar diagnostic #200 strips 12/18/22 03/23/23 slippers #1 ea 12/18/22 03/23/23 compr.stocking,thigh,reg,x-lrg #12 ea 02/17/23 03/23/23 ciprofloxacin HCl 250 mg tablet 250 mg PO BID #14 tabs 03/02/23 03/23/23 gabapentin 300 mg capsule 300 mg PO TID #90 caps 03/27/23 Previous Rx's Medication Instructions Recorded lancets 33 gauge (OneTouch Delica #100 ea 05/26/19 Lancets) losartan 25 mg tablet 25 mg PO BID #180 tab-caps 02/27/22 insulin NPH isoph U-100 human 100 See Rx Instructions subcut 03/25/22 unit/mL subcutaneous suspension .COMPLEX #40 mL (Novolin N NPH U-100 Insulin isophane) gemfibrozil 600 mg tablet 600 mg PO BID #180 tab-caps 04/15/22 metformin 500 mg tablet,extended 1,000 mg PO BID #360 tabs 11/06/22 release 24hr metoprolol tartrate 25 mg tablet 12.5 mg PO BID #90 tabs 11/18/22 insulin syringe-needle U-100 0.5 #100 ea 12/08/22 mL 31 gauge x 5/16 (BD Insulin Syringe Ultra-Fine) blood sugar diagnostic #200 strips 12/18/22 slippers #1 ea 12/18/22 compr.stocking,thigh,reg,x-lrg #12 ea 02/17/23 ciprofloxacin HCl 250 mg tablet 250 mg PO BID #14 tabs 03/02/23 gabapentin 300 mg capsule 300 mg PO TID #90 caps 03/27/23 Allergies Allergy/AdvReac Type Severity Reaction Status Date / Time omeprazole AdvReac Intermediate diarrhea Verified 03/23/23 10:04 atorvastatin calcium AdvReac muscle pain Verified 03/23/23 10:04 [From Lipitor] ezetimibe AdvReac fatique, Verified 03/23/23 10:04 [From Vytorin 10-10] blurred vision lisinopril AdvReac cough Verified 03/23/23 10:04 lovastatin AdvReac muscle pain Verified 03/23/23 10:04 pravastatin AdvReac muscle pain Verified 03/23/23 10:04 simvastatin AdvReac fatique, Verified 03/23/23 10:04 [From Vytorin 10-10] blurred vision General Stated Complaint: Laceration LIBIA: 3 Review of Systems Narrative: Review of Systems Constitutional: negative Eyes: negative ENT: negative Cardiovascular: negative Respiratory: negative Gastrointestinal: negative : negative Musculoskeletal: negative Skin: Chronic skin wound Neurologic: negative Psych: negative PFSH All Active Problems (Updated 04/01/23 @ 12:19 by Nazario Marcano MD) Leg wound, right (Acute) Venous stasis ulcer limited to breakdown of skin with varicose veins (Acute) Diabetic foot ulcer (Acute) Open wounds involving multiple regions of lower extremity without complication (Acute) Onychomycosis of multiple toenails with type 2 diabetes mellitus (Acute 12/09/22) Ingrowing nail (Acute 12/09/22) Nail dystrophy (Acute 12/09/22) Pseudophakia (Acute) Posterior vitreous detachment, left eye (Acute) Age-related macular degeneration, dry (Chronic) left eye, early right eye without fld both eyes 01/2022 Hepatic steatosis (Acute) Chronic kidney disease (Chronic) Other atherosclerosis of [place] arteries of extremities, bilateral legs (Acute) Nonproliferative diabetic retinopathy without macular edema associated with type 2 diabetes mellitus (Acute) Nocturnal leg cramps (Acute) Seborrheic keratoses (Acute) 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) Low back pain (Acute 09/17/11) Activity intolerance related to fatigue (Acute 09/17/11) Cortical senile cataract (Acute 09/17/11) Localized osteoarthrosis, lower leg (Acute 09/17/11) PVD (peripheral vascular disease) (Acute 09/17/11) Primary malignant neoplasm of prostate (Acute 03/06/97) Sleep disorder (Chronic 07/15/13) Never okay, due to awakening 2AM 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 Clarke 05-25-2013 History of - myocardial infarction (Chronic) [place] Diabetes mellitus type 2 (Chronic) Hyperlipidemia (Chronic) PVC's (Chronic) Medical History (Updated 04/01/23 @ 12:19 by Nazario Marcano MD) ASCVD (arteriosclerotic cardiovascular disease) with MPI 08/21/22 also noted by medical office scheduler at visit. Cataracts, both eyes Colon adenoma Depression Diabetes type 2, controlled Last HgA1C 7.1 DJD (degenerative joint disease) History of malignant neoplasm of prostate HTN (hypertension) Hyperlipidemia Low back pain Mild nonproliferative diabetic retinopathy Obesity Prostate cancer PVD (peripheral vascular disease) scarring on chest X-ray Tobacco quit date established March 2016 Surgical History (Updated 07/25/22 @ 09:17 by Sheryl Lopez RN) Cataract, left eye (03/13/16) Cristal Torres MD Colonoscopy - IV Sedation [id number] Colonoscopy - MAC (05/09/16) EGD - MAC (08/25/16) Extraction of cataract (02/01/15) Right eye; Dr. Cristal Torres History of surgery Left total knee. Prostatectomy for prostate cancer ORIF left hymerus that was done many years agol. T & A done as a child. I & D perianal abscess (05/07/15) Dr. Beverly Daly Prostectomy, Suprapubic (03/06/97) Dr Dexter, prostate cancer Replacement of total knee joint Right- cemented 05/25/13 Dr. Clarke Lt. -2008 Dr. Clarke synvisc injection rt knee Family History Mother , age 63 Heart disease Father Stroke Social History (Updated 12/16/21 @ 11:28 by Indy Ladd LPN) Smoking/Tobacco Use Status: Former Tobacco Use Tobacco: How many years used: 25 Smoking risk assessment performed?: Yes Alcohol Intake: never Drug use: Never Substance use type: does not use Household members: none Number of Children: 0 Communication Needs: Corrective Lenses Do you need help understanding health information?: Rarely How often do you talk on the phone with friends or family?: twice per week How often do you get together with friends or relatives?: twice per week Panel score (0-1 are the most socially isolated patients): 1 What type of physical activity do you participate in: regular exercise and other Details: exercises 3x/week Frequency: 3-4 times per week Seatbelt use: always Drive intox or ride w/intox tow car driver: No Working smoke detector in home: Yes Fire extinguisher in home: Yes Carbon monox detector in home: Yes Do you feel safe at home: Yes Do you feel safe in your relationship?: Yes Exam Narrative Exam Narrative: Physical Examination General: alert, awake, cooperative, resting comfortably, no acute distress Skin: 3 cm x 2 cm rectangular shallow ulceration to pretibial soft tissue of right lower extremity, well granulated, hemostatic area of venous oozing Extremities: See skin Course Vital Signs Vital signs: Vital Signs Temperature 36.0 C L 04/01/23 11:23 Pulse 97 H 04/01/23 11:23 Respiratory Rate 16 04/01/23 11:23 Blood Pressure 119/66 04/01/23 11:23 Pulse Oximetry 98 04/01/23 11:23 Temperature 36.0 C L 04/01/23 11:23 Temperature Source Tympanic 04/01/23 11:23 Pulse 97 H 04/01/23 11:23 Respiratory Rate 16 04/01/23 11:23 Respiratory Effort Normal, Non-Labored 04/01/23 11:48 Blood Pressure 119/66 04/01/23 11:23 Pulse Oximetry 98 04/01/23 11:23 Oxygen Delivery Method Room Air 04/01/23 11:23 Oxygen Flow Rate 0 04/01/23 11:23 Pain Level 2 04/01/23 11:23
== END 2023-04-01 12:40 | disposition home or self-care (01) ==
LOC: ER 12:31
PROVIDERS: Emergency Provider Emergency Medicine; PCP Family Medicine
DX: S81.801A Unspecified open wound, right lower leg, initial encounter (principal); X58.XXXA Exposure to other specified factors, initial encounter
CPT/HCPCS: 99282; 99283

== ENCOUNTER 2023-04-12 13:02 | Inpatient (IN) | payer MEDICARE, BC, OTHER, SELFPAY ==
[2023-04-12] VITALS (79 sets, daily range): BP systolic 79–148; BP diastolic 46–93; PULSE 28–123; RESP 15–32; TEMP 36.4–36.8; O2SAT 99
--- NOTE | 2023-04-12 13:00 | RT.EKG_ITS ---
APPROVED REPORT Exam: Resting ECG Reason for Exam: left shoulder pain Patient Location: E HR:94 bpm ECG Measurements Heart Rate 94 AXIS [place] 193 P 69 QRSd 100 QRS 10 QT 392 T 52 QTc 492 Conclusion Sinus rhythm...normal P axis, V-rate 60- 99 Ventricular bigeminy...bigeminy string>4 w/ V complexes
--- NOTE | 2023-04-12 13:30 | RT.EKG_ITS ---
APPROVED REPORT Exam: Resting ECG Reason for Exam: atraumatic right and left shoulder pain. Patient Location: E HR:92 bpm ECG Measurements Heart Rate 92 AXIS [place] 192 P 71 QRSd 93 QRS 11 QT 399 T 37 QTc 493 Conclusion Sinus rhythm...normal P axis, V-rate 60- 99 Low voltage, precordial leads...precordial leads <1.0mV Consider anterior infarct...Q >30mS in V2-V5 Bigeminy has resolved. Q wave in II, avF V1-V3 No STEMI
--- NOTE | 2023-04-12 13:30 | DI.RAD_ITS ---
Exam(s) XR PORTABLE CHEST AP EXAM: XR PORTABLE CHEST AP CLINICAL HISTORY: bilateral arm pain TECHNIQUE: 2D digital imaging was performed. COMPARISON: CR XR CHEST 2V PA LATERAL from 11/19/2022 FINDINGS: Exam limited by leads overlying the chest LUNGS: Interstitial changes.. No consolidation. No pleural abnormality seen. HEART: Normal size. AORTA: Normal diameter. BONES: Unremarkable for age. Soft tissues: Unremarkable. IMPRESSION: No acute findings. DATA REPOSITORY: RADIATION DOSE DELIVERED:
--- NOTE | 2023-04-12 13:31 | ED.GENADUL_ITS ---
Discharge Plan Disposition Patient Disposition: Admit to [facility] Discharge Details Primary Care Provider: Gilbert Hudson ED Provider: Elva Stanton Home Meds and New Rx's Prescriptions: No Action (DME) lancets [OneTouch Delica Lancets] 33 gauge misc 1 ea Miscellaneous DAILY Qty: 100 3RF Rx Instructions: to check BS for DM E11.9 management to keep A1c <8. (DME) slippers See Rx Instructions .Route .MEDSUPPLY Qty: 1 1RF Rx Instructions: Patient had fall, slipped. Bled onto slippers, needs new pair. (DME) compr.stocking,thigh,reg,x-lrg Misc See Rx Instructions .Route Qty: 12 0RF Rx Instructions: As directed Systane Ultra 0.4-0.3 % drops 1 drp OP QID PRN Rx Instructions: per after visit summary 03/23/20 [facility] losartan 25 mg tablet 25 mg PO BID Qty: 180 3RF Rx Instructions: for bp control under 140/80 Novolin N NPH U-100 Insulin 100 unit/mL suspension See Rx Instructions SC .COMPLEX Qty: 40 12RF Rx Instructions: subcut t10 units qnoon and 50 units qhs; To keep HbA1c below 6.5 metformin 500 mg tablet extended release 24hr 1,000 mg PO BID Qty: 360 3RF metoprolol tartrate 25 mg tablet 12.5 mg PO BID Qty: 90 3RF Rx Instructions: 0.5 of a 25 mg tablet, twice daily, for BP (DME) insulin syringe-needle U-100 [BD Insulin Syringe Ultra-Fine] 0.5 mL 31 gauge x 5/16 syringe See Dose Instructions .ROUTE .MEDSUPPLY Qty: 100 6RF Dose Instruction: As directed Rx Instructions: to administer Novolin N daily at 7 pm (DME) blood sugar diagnostic Strip 1 ea Miscellaneous BID Qty: 200 11RF Rx Instructions: For DM E11.39 to test blood sugar BID and maintain A1C less than 7 ciprofloxacin HCl 250 mg tablet 250 mg PO BID Qty: 14 0RF gabapentin 300 mg capsule 300 mg PO TID Qty: 90 0RF Rx Instructions: Start 1 tab QD; increase to q12 if tolerated after 3 days, then increase to q8 after 3 more gemfibrozil 600 mg tablet 600 mg PO BID Qty: 180 3RF Rx Instructions: for lipids and vascular disease aspirin [Cadence Low Dose Aspirin] 81 MG tablet,delayed release (DR/EC) 81 mg PO DAILY Discharge Data Discharge Physician: Elva Stanton Medical Decision Making This is a 87-year-old ubnaw-egdg-luwlecru male who presents with atraumatic bilateral shoulder pain. He tells me that 4 days ago he had right shoulder pain which resolved and for the past 2 days he has had left shoulder pain which he noticed on waking this morning. He denies any unusual activities with his arms. He denies any repetitive movements or trauma. He does have risk factors for coronary artery disease and does have evidence of peripheral vascular disease and diabetes. It is more likely this is musculoskeletal although there is no obvious etiology. My plan is to check blood work including cardiac enzymes electrolytes renal function LFTs and a CBC. If his renal function is normal we will obtain a CT scan of the chest and bilateral shoulders. I have written acetaminophen for pain HPI General Date/Time Provider Initiated Documentation: 04/12/23 13:31 . HPI Narrative: Time seen was 1310 in bed 7. The patient is an 87-year-old [id number]-[id number] male who presents with right arm pain which began at rest 4 days ago and left arm pain that began 2 days ago. He denies any overuse syndrome or any trauma. He has not been doing anything unusual with his arms. He does have a history of an ORIF of the left humerus 50 years ago. He does have a history of peripheral vascular disease diabetes and has venous stasis ulcers both legs which have been treated by his primary care provider. He describes the pain as constant sharp and nonradiating. He denied any chest pain or shortness of breath. He took 500 mg of acetaminophen 4 hours prior to arrival. The patient also has a history of a prostatectomy many years ago and an umbilical hernia. He does have risk factors for heart disease including family history and hypertension. He quit smoking 5 years ago. 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 He states he has never had a known history of heart disease but does have frequent PVCs. He states he had a stress test many years ago but is never had a cardiac catheterization. He states that the left arm pain is worse with movement and the pain is located in the left upper aspect of the left arm/lateral shoulder. He denies any radiation down his arms. He does not use any phosphodiesterase inhibitors. He is not on any blood thinners. He has had a total knee replacement on the left. Related Data Home Medications Medication Instructions Recorded Confirmed aspirin 81 mg tablet,delayed 81 mg PO DAILY 05/17/13 03/23/23 release (Cadence Low Dose Aspirin) lancets 33 gauge (OneTouch Delica #100 ea 05/26/19 03/23/23 Lancets) peg 400-propylene glycol 0.4 %-0.3 1 drp ophthalmic (eye) QID PRN 03/26/20 03/23/23 % eye drops (Systane Ultra) losartan 25 mg tablet 25 mg PO BID #180 tab-caps 02/27/22 03/23/23 insulin NPH isoph U-100 human 100 See Rx Instructions subcut 03/25/22 03/23/23 unit/mL subcutaneous suspension .COMPLEX #40 mL (Novolin N NPH U-100 Insulin isophane) metformin 500 mg tablet,extended 1,000 mg PO BID #360 tabs 11/06/22 03/23/23 release 24hr metoprolol tartrate 25 mg tablet 12.5 mg PO BID #90 tabs 11/18/22 03/23/23 insulin syringe-needle U-100 0.5 #100 ea 12/08/22 03/23/23 mL 31 gauge x 5/16 (BD Insulin Syringe Ultra-Fine) blood sugar diagnostic #200 strips 12/18/22 03/23/23 slippers #1 ea 12/18/22 03/23/23 compr.stocking,thigh,reg,x-lrg #12 ea 02/17/23 03/23/23 ciprofloxacin HCl 250 mg tablet 250 mg PO BID #14 tabs 03/02/23 03/23/23 gabapentin 300 mg capsule 300 mg PO TID #90 caps 03/27/23 gemfibrozil 600 mg tablet 600 mg PO BID #180 tab-caps 04/02/23 Previous Rx's Medication Instructions Recorded lancets 33 gauge (OneTouch Delica #100 ea 05/26/19 Lancets) losartan 25 mg tablet 25 mg PO BID #180 tab-caps 02/27/22 insulin NPH isoph U-100 human 100 See Rx Instructions subcut 03/25/22 unit/mL subcutaneous suspension .COMPLEX #40 mL (Novolin N NPH U-100 Insulin isophane) metformin 500 mg tablet,extended 1,000 mg PO BID #360 tabs 11/06/22 release 24hr metoprolol tartrate 25 mg tablet 12.5 mg PO BID #90 tabs 11/18/22 insulin syringe-needle U-100 0.5 #100 ea 12/08/22 mL 31 gauge x 5/16 (BD Insulin Syringe Ultra-Fine) blood sugar diagnostic #200 strips 12/18/22 slippers #1 ea 12/18/22 compr.stocking,thigh,reg,x-lrg #12 ea 02/17/23 ciprofloxacin HCl 250 mg tablet 250 mg PO BID #14 tabs 03/02/23 gabapentin 300 mg capsule 300 mg PO TID #90 caps 03/27/23 gemfibrozil 600 mg tablet 600 mg PO BID #180 tab-caps 04/02/23 Allergies Allergy/AdvReac Type Severity Reaction Status Date / Time omeprazole AdvReac Intermediate diarrhea Verified 04/12/23 13:13 atorvastatin calcium AdvReac muscle pain Verified 04/12/23 13:13 [From Lipitor] ezetimibe AdvReac fatique, Verified 04/12/23 13:13 [From Vytorin 10-10] blurred vision lisinopril AdvReac cough Verified 04/12/23 13:13 lovastatin AdvReac muscle pain Verified 04/12/23 13:13 pravastatin AdvReac muscle pain Verified 04/12/23 13:13 simvastatin AdvReac fatique, Verified 04/12/23 13:13 [From Vytorin 10-10] blurred vision General Stated Complaint: [facility] LIBIA: 3 Review of Systems Narrative: see hpi PFSH All Active Problems (Updated 04/01/23 @ 12:19 by Nazario Marcano MD) Leg wound, right (Acute) Venous stasis ulcer limited to breakdown of skin with varicose veins (Acute) Diabetic foot ulcer (Acute) Open wounds involving multiple regions of lower extremity without complication (Acute) Onychomycosis of multiple toenails with type 2 diabetes mellitus (Acute 12/09/22) Ingrowing nail (Acute 12/09/22) Nail dystrophy (Acute 12/09/22) Pseudophakia (Acute) Posterior vitreous detachment, left eye (Acute) Age-related macular degeneration, dry (Chronic) left eye, early right eye without fld both eyes 01/2022 Hepatic steatosis (Acute) Chronic kidney disease (Chronic) Other atherosclerosis of robinson arteries of extremities, bilateral legs (Acute) Nonproliferative diabetic retinopathy without macular edema associated with type 2 diabetes mellitus (Acute) Nocturnal leg cramps (Acute) Seborrheic keratoses (Acute) 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) Low back pain (Acute 09/17/11) Activity intolerance related to fatigue (Acute 09/17/11) Cortical senile cataract (Acute 09/17/11) Localized osteoarthrosis, lower leg (Acute 09/17/11) PVD (peripheral vascular disease) (Acute 09/17/11) Primary malignant neoplasm of prostate (Acute 03/06/97) Sleep disorder (Chronic 07/15/13) Never okay, due to awakening 2AM 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 Clarke 05-25-2013 History of - myocardial infarction (Chronic) Silent ID Diabetes mellitus type 2 (Chronic) Hyperlipidemia (Chronic) PVC's (Chronic) Medical History (Updated 04/01/23 @ 12:19 by Nazario Marcano MD) ASCVD (arteriosclerotic cardiovascular disease) with MPI 08/21/22 also noted by regional project manager at visit. Cataracts, both eyes Colon adenoma Depression Diabetes type 2, controlled Last HgA1C 7.1 DJD (degenerative joint disease) History of malignant neoplasm of prostate HTN (hypertension) Hyperlipidemia Low back pain Mild nonproliferative diabetic retinopathy Obesity Prostate cancer PVD (peripheral vascular disease) scarring on chest X-ray Tobacco quit date established March 2016 Surgical History (Updated 07/25/22 @ 09:17 by Sheryl Lopez RN) Cataract, left eye (03/13/16) Cristal Torres MD Colonoscopy - IV Sedation [id number] Colonoscopy - MAC (05/09/16) EGD - MAC (08/25/16) Extraction of cataract (02/01/15) Right eye; Dr. Cristal Torres History of surgery Left total knee. Prostatectomy for prostate cancer ORIF left hymerus that was done many years agol. T & A done as a child. I & D perianal abscess (05/07/15) Dr. Beverly Daly Prostectomy, Suprapubic (03/06/97) Dr Dexter, prostate cancer Replacement of total knee joint Right- cemented 05/25/13 Dr. Clarke Lt. -2008 Dr. Clarke synvisc injection rt knee Family History Mother , age 63 Heart disease Father Stroke Social History (Updated 12/16/21 @ 11:28 by Indy Ladd LPN) Smoking/Tobacco Use Status: Former Tobacco Use Tobacco: How many years used: 25 Smoking risk assessment performed?: Yes Alcohol Intake: never Drug use: Never Substance use type: does not use Household members: none Number of Children: 0 Communication Needs: Corrective Lenses Do you need help understanding health information?: Rarely How often do you talk on the phone with friends or family?: twice per week How often do you get together with friends or relatives?: twice per week Panel score (0-1 are the most socially isolated patients): 1 What type of physical activity do you participate in: regular exercise and other Details: exercises 3x/week Frequency: 3-4 times per week Seatbelt use: always Drive intox or ride w/intox waste collection driver: No Working smoke detector in home: Yes Fire extinguisher in home: Yes Carbon monox detector in home: Yes Do you feel safe at home: Yes Do you feel safe in your relationship?: Yes Exam Const General: cooperative, healthy appearing, comfortable, no acute distress, well developed, well groomed and well hydrated Nutritional Appearance: well nourished Orientation: alert, awake and oriented x3 HENMT Head: normal to inspection, normocephalic and atraumatic Ears: hearing grossly normal bilaterally and external ears normal General nose exam: external nose normal, nares normal and no nasal discharge Face and sinus: normal facial exam, sinuses nontender and face symmetric Mouth: oral mucosae normal, lip normal, tongue normal and other (Normal phonation. The patient is handling secretions.) Eyes General: appearance normal, both eyes and all related structures Eyelids: eyelids normal Conjunctivae: conjunctivae normal Sclera: sclerae normal Cornea: corneas normal Pupils: PERRL EOM: EOM intact bilaterally and No nystagmus Neck Neck: normal visual inspection, full ROM, no lymphadenopathy, no meningeal signs, trachea midline and supple Lymphatic: no lymphadenopathy noted Chest Chest: normal inspection of the chest Resp Effort & Inspection: normal respiratory effort, able to speak in complete sentences, no audible wheezes, no nasal flaring, no respiratory distress, no retractions, no stridor, not tachypneic, no tracheal deviation, no use of accessory muscles, No prolonged expiratory phase and other (Normal inspiratory to expiratory ratio.) Auscultation: clear to auscultation bilaterally, no rales, no rhonchi, no wheezes and no rubs Tactile Fremitus: tactile fremitus absent Cardio Jugular venous pressure: no JVD Palpation: normal PMI Rate: regular rate Rhythm: regular rhythm Heart Sounds: S1 normal, S2 normal, no gallops, no murmurs and no rubs Back/Spine/Pelvis Back: no CVA tenderness and No back tenderness Cervical Spine: normal cervical lordosis, cervical ROM normal, No cervical muscular tenderness, No pain with cervical ROM, No cervical spinal tenderness and No step off deformity Thoracic/Lumbar Spine: thoracic and lumbar spine normal to inspection, No thoracic spinal tenderness and No lumbar spinal tenderness Pelvis: no pain with anterior-posterior compression and no pain with lateral compression Neuro General: patient alert, patient awake, patient oriented x3, moves all extremities, no meningeal signs, no focal motor deficits and CN's II-XI intact bilaterally Cranial Nerves: CN's II-XI intact bilaterally, PERRL, accommodation normal, EOM intact bilaterally, no nystagmus, facial strength normal, tongue midline, hearing normal and no nystagmus Cognition: normal cognition Speech: speech normal Gait: normal gait Motor: muscle tone normal throughout and strength 5/5 throughout Sensory Exam: no sensory deficits noted Extrem Other: His extremities reveal a well-healed surgical scar over the left humerus and over the left knee. He has healing ulcers on both lower extremities. The right foot has a ulcer which is healing on the dorsum. He has evidence of chronic venous insufficiency. His feet are warm but his dorsalis pedis pulses are difficult to palpate bilaterally. His capillary refill is slightly longer than 2 seconds. He does have mild symmetric pedal edema no Homans signs or cords. He is tender over the biceps insertion on the left side. He has decreased range of motion secondary to pain. Psych Appearance: grossly normal Affect: normal affect Attitude: cooperative Thought Process: normal Thought Content: normal Insight: insight good Judgment: judgment good Other: The patient appears to have capacity make medical decisions. Course Reevaluation(s) Initial Evaluation: The patient had a transient episode of which hypotension, dropping his blood pressure into the 80s. He was asymptomatic. His blood pressure normalized Taken by Consultations Consultation #1: Cardiology [facility]. They recommended that we give him p.o. metoprolol tartrate 12.5 mg every 6 hours. They agreed with the heparin bolus and drip. They agreed with Plavix 300. The patient had already been loaded with aspirin. He has been accepted by Dr. Barfield for tomorrow and be admitted here overnight. I have discussed with the hospitalist. Time: 15:30 Vital Signs Vital signs: Vital Signs Temperature 36.8 C 04/12/23 13:04 Pulse 28 L 04/12/23 13:04 Respiratory Rate 20 04/12/23 13:04 Blood Pressure 148/66 H 04/12/23 13:04 Pulse Oximetry 99 04/12/23 13:04 Temperature 36.8 C 04/12/23 13:04 Temperature Source Oral 04/12/23 13:04 Pulse 28 L 04/12/23 13:04 Respiratory Rate 16 04/12/23 13:25 Respiratory Effort Normal 04/12/23 13:25 Respiratory Depth Normal 04/12/23 13:25 Respiratory Pattern Normal 04/12/23 13:25 Blood Pressure 148/66 H 04/12/23 13:04 Pulse Oximetry 99 04/12/23 13:04 Oxygen Delivery Method Room Air 04/12/23 13:04 Oxygen Flow Rate 0 04/12/23 13:04 Pain Level 10 04/12/23 13:04 Critical Care Time Critical Care Time Critical Care Time: Yes Total Critical Care Time: 45 Attestation: This is critical care time for time at the bedside, interpretation of labs radiographs and EKGs, consultation with cardiology and the hospitalist. Consultation with the pharmacist. Review of old records and EKGs
[2023-04-12] MEDS: ACETAMINOPHEN 1,000 MG/100 ML BTL 400 MG IVPB (14:12)
[2023-04-12] MEDS: Aspirin 81 MG CHEW 243 MG CH (14:15)
[2023-04-12 14:18] LABS: Abs Immature Grans 0.09 10^3/uL (0.0-0.06); Absolute Eosinophil Count 0.12 10^3/uL (0.0-0.7); Absolute Monocyte Count 1.46 10^3/uL (0.1-0.8); Basophils % 0.3; Eosinophils % 0.8; HCT 35.6 % (40.0-50.0); HGB 11.8 g/dL (13.5-17.5); Immature Grans % 0.6; Lymphocytes % 10.4; MCH 29.5 pg (27.0-33.0); MCHC 33.1 % (32.0-36.0); MCV 89 fL (80-95); Neutrophils % 77.9; Platelet Count 351 10^3/uL (130-400); RDW 12.8 % (11.8-14.1); RDW-SD 42.2 fL; WBC 14.55 10^3/uL (4.4-10.8)
[2023-04-12 14:21] LABS: Absolute Basophil Count 0.04 10^3/uL (0.0-0.2); Absolute Lymphocyte Count 1.51 10^3/uL (1.2-3.4); Absolute Neutrophil Count 11.33 10^3/uL (1.2-6.7)
[2023-04-12 14:39] LABS: ALT 35 U/L (16-63); AST 26 U/L (15-37); Albumin 2.6 g/dL (3.4-5.0); Alkaline Phosphatase 105 U/L (46-116); Anion Gap 8.3 mmol/L (3-11); BUN 42 mg/dL (7-18); Bilirubin, Total 0.4 mg/dL (0.2-1.0); CO2 28.7 mmol/L (21.0-32.0); CREATININE 1.3 mg/dL (0.70-1.30); Calcium 9.6 mg/dL (8.5-10.1); Chloride 98 mmol/L (98-107); Estimated GFR 53.17 (mL/min/1.73m2); Glucose 173 mg/dL (74-106); NT-proBNP 1775 pg/mL (<300); Potassium 3.5 mmol/L (3.5-5.1); Sodium 135 mmol/L (136-145); Total Protein 7.5 g/dL (6.4-8.2)
[2023-04-12 14:43] LABS: Troponin I 1815 ng/L (<or=60)
[2023-04-12 14:51] LABS: D-Dimer 1900 ng/mlFEU (<500)
--- NOTE | 2023-04-12 15:12 | DI.VRAD_ITS ---
PROCEDURE INFORMATION: Exam: XR Chest Exam date and time: 04/12/2023 2:44 PM Age: 87 years old Clinical indication: Other: Bi lateral arm pain TECHNIQUE: Imaging protocol: Radiologic exam of the chest. Views: 1 view. COMPARISON: CR XR CHEST 2V PA LATERAL 11/19/2022 11:27 AM FINDINGS: Lungs: No consolidation. No Mass Pleural spaces: No pleural effusion. No pneumothorax. Heart/Mediastinum: Unremarkable Vasculature: This calcifications of the aortic arch. Bones/joints: Degenerative changes of the thoracic spine. IMPRESSION: No acute cardiopulmonary disease Dictated and Authenticated by: Juan Brown MD. Ordering:HATTIE Stevenson MD
[2023-04-12] MEDS: Clopidogrel 300 MG TAB PO (15:24)
[2023-04-12] MEDS: Heparin 5,000 UNITS/ML VIAL 5000 UNITS IVP (15:24)
[2023-04-12] MEDS: nitroGLYcerin in D5W 50 MG/250 ML BTL IV (15:43)
[2023-04-12] MEDS: Heparin in 0.45% NaCl 25,000 UNIT/250 ML BAG 12 UNIT IV (15:46)
[2023-04-12] MEDS: Metoprolol 12.5 MG TAB PO ×2 (15:56→21:46)
[2023-04-12 16:59] LABS: Troponin I 1521 ng/L (<or=60)
[2023-04-12 17:12] LABS: INR 1.3 (0.9-1.1); Prothrombin Time 13.2 sec (9.3-11.0)
[2023-04-12 17:43] LABS: PTT Activated 91.6 sec (21.5-31.9)
--- NOTE | 2023-04-12 19:03 | W.PM.HP.N ---
Date of service: 04/12/23 Time of Service: 19:03 Assessment and Plan Assessment and plan (1) NSTEMI (non-ST elevated myocardial infarction): Status: Acute Assessment and plan: heparin drip, NTG drip, DAPT, intolerant of statins, lopressor; transfer to [facility] when bed becomes available, monitor serial troponin; check echo in the a.m. if he remains hospitalized here (2) Gangrenous toe: Status: Acute Assessment and plan: he has severe PAD and has ischemia to his right foot w/ gangrenous right great toe, w/ foul smell and wet, blackened toe. He will need surgical amputation after he is evaluated by vascular surgery to determine the level of viability of his right foot. I will start him on vancomycin and meropenem after obtaining blood cultures. However, I have learned that he will be going tonight to [facility] very soon, therefore there will be little time to get him started on antibiotics although it appears that he has been on Cipro (3) Ventricular bigeminy: Status: Acute Assessment and plan: titrate lopressor, monitor electrolytes, troponin (4) Diabetes mellitus type 2: Status: Chronic Assessment and plan: basal/bolus insulin w/ novolog and lantus, monitor glucose AC/HS (5) Chronic kidney disease: Status: Chronic Assessment and plan: monitor urine ouput, daily BMP, avoid nephrotoxins, avoid hypotension (6) HTN (hypertension): Assessment and plan: as the patient will be titated on lopressor and NTG drip, I have held his losartan (7) PVD (peripheral vascular disease): Status: Acute Assessment and plan: patient has severe PAD, he was already on ASA 81 mg daily, plavix added for his NSTEMI (8) Venous stasis ulcer limited to breakdown of skin with varicose veins: Status: Acute Assessment and plan: patient has had bilateral pretibial skin ulcers which he has been followed by [facility] in [place]. The left pretibial wound has healed up. The right wound still has ulcer but w/ no purulent drainage and he has been receiving dressing changes by home health but now is followed by [facility]. As the wound appears to be starting to fill in, I would continue current dressing changes. If he remains hospitalized at [facility], I will consult wound care nurse to evaluate Qualifiers: Venous stasis ulcer site: other part of lower leg Laterality: right Qualified Code(s): I83.018 - Varicose veins of right lower extremity with ulcer other part of lower leg; L97.811 - Non-pressure chronic ulcer of other part of right lower leg limited to breakdown of skin (9) Leg wound, right: Status: Acute Assessment and plan: as above (10) Hyperlipidemia: Status: Chronic Assessment and plan: not a candidate for statin therapy. I would consider one of the biologic agents to trx his HLD History of Present Illness History of Present Illness Chief Complaint: Chills, hyperglycemia, dyspnea, atypical chest pain Narrative: This is a 87-year-old male with type II diabetic who is on chronic insulin therapy with a history of essential pretension, hyperlipidemia intolerant to statins, severe peripheral vascular disease she had chronic pretibial wounds that is been managed by home health and now recently by [facility] in [facility], he has diabetic neuropathy, Prostate cancer, diabetic retinopathy, DJD presented emergency department with symptoms of recent onset elevated blood sugars. Normally his glycohemoglobin A1c is 7% and his morning blood sugars usually run 98 220. But a week ago he was having chills but no cough or sputum production he thought perhaps he was getting COVID so he did a home COVID-19 test which was negative. He was not having any dysuria or chest discomfort at that time. About 4 days ago he was complaining of right shoulder pain and arm pain that lasted for couple days and has since resolved and then 2 days ago is left shoulder began to hurt him. Turns out that he had a fall about 4 months ago and has had intermittent left shoulder pain ever since then. Throughout this past week he had no chest pain per se although he acknowledges that over the last several months he has had intermittent chest tightness that occurs with physical activity such as carrying wood into his house. As part of his evaluation at [facility] they not only evaluated his pretibial skin ulcers the left which is nearly healed up completely in the right [place] there is still managing with dressing changes they also noted that his right great toe has ulceration and they bandaged this up. My evaluation tonight revealed that the right great toe is gangrenous blackened and foul-smelling and weeping fluid. He also has no palpable pulses in either foot although we were able to obtain Doppler pulses over the left posterior tibial and a faint Doppler pulse over the right posterior tibial but neither dorsalis pedis pulse was palpable. Work-up in the emergency department included routine labs as well as chest x-ray and EKG. EKG demonstrated sinus rhythm rate of 92 bpm normal SC interval 192 ms. Normal QTc interval 493 ms and normal P wave and T wave axis. He has evidence of an old inferior infarct with Q waves in limb leads III and aVF and he has markedly diminished anterior R wave forces. He has no ST elevation or depression. His first ECG showed similar findings but he was in ventricular bigeminy at the time. Chest x-ray was performed showed no congestive heart failure no acute pulmonary findings heart size was normal. Labs were remarkable for a white count of 14,500. Hemoglobin 11.8 g. CMP shows elevated BUN of 42 with a normal creatinine 1.3 no electrolyte imbalance. LFTs are normal. His troponin level was elevated at 1815 with a proBNP of 1775. Subsequent troponins remain elevated but are declining at 1521 and 1504. ED provider discussed his case with [facility] cardiology services and they recommend heparinization dual antiplatelet therapy as well as nitroglycerin. Patient has been started on nitroglycerin drip and heparin drip. He was given a loading dose of Plavix 300 mg and had already had 81 mg dose of aspirin at home so he was given the balance of the aspirin loading dose for total of 325 mg. Patient's been accepted for transfer to [facility] cardiology services pending bed availability which they do not anticipate till tomorrow. Patient denies any ongoing chest pain but has ongoing left shoulder pain which is reproducible with palpation. Physical exam suggests he is got subluxation of his left shoulder prior from previous fall Review of Systems All systems reviewed & are unremarkable except as noted in HPI and below Cardiovascular Cardiovascular: Denies chest pain, Denies leg edema, Denies lightheadedness, Denies radiating jaw, neck or arm pain, Denies palpitations, Reports dyspnea and Reports dyspnea on exertion Respiratory Respiratory: Denies chest congestion, Denies cough, Reports dyspnea and Reports dyspnea on exertion Gastrointestinal Gastrointestinal: Reports system reviewed and no additional complaints, except as documented Genitourinary Genitourinary: Reports system reviewed and no additional complaints, except as documented Musculoskeletal Musculoskeletal: Reports arthralgias (Left shoulder) and Reports tingling Integumentary/Breasts Skin/Breast: Reports non-healing lesions and Reports sores Neurologic Neurologic: Reports sensory deficit and Reports tingling Psychiatric Psychiatric: Reports system reviewed and no additional complaints, except as documented Endocrine Endocrine: Reports system reviewed and no additional complaints, except as documented and Denies palpitations Hematologic/Lymphatic Hematologic/Lymphatic: Reports system reviewed and no additional complaints, except as documented Allergic/Immunologic Allergic/Immunologic: Reports system reviewed and no additional complaints, except as documented PFSH All Active Problems (Updated 04/12/23 @ 20:12 by Corey Lambert MD) Gangrenous toe (Acute) Leukocytosis, unspecified (Acute) Ventricular bigeminy (Acute) NSTEMI (non-ST elevated myocardial infarction) (Acute) Leg wound, right (Acute) Venous stasis ulcer limited to breakdown of skin with varicose veins (Acute) Diabetic foot ulcer (Acute) Open wounds involving multiple regions of lower extremity without complication (Acute) Onychomycosis of multiple toenails with type 2 diabetes mellitus (Acute 12/09/22) Ingrowing nail (Acute 12/09/22) Nail dystrophy (Acute 12/09/22) Pseudophakia (Acute) Posterior vitreous detachment, left eye (Acute) Age-related macular degeneration, dry (Chronic) left eye, early right eye without fld both eyes 01/2022 Hepatic steatosis (Acute) Chronic kidney disease (Chronic) Other atherosclerosis of [place] arteries of extremities, bilateral legs (Acute) Nonproliferative diabetic retinopathy without macular edema associated with type 2 diabetes mellitus (Acute) Nocturnal leg cramps (Acute) Seborrheic keratoses (Acute) 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) Low back pain (Acute 09/17/11) Activity intolerance related to fatigue (Acute 09/17/11) Cortical senile cataract (Acute 09/17/11) Localized osteoarthrosis, lower leg (Acute 09/17/11) PVD (peripheral vascular disease) (Acute 09/17/11) Primary malignant neoplasm of prostate (Acute 03/06/97) Sleep disorder (Chronic 07/15/13) Never okay, due to awakening 2AM 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 Clarke 05-25-2013 History of - myocardial infarction (Chronic) [place] Diabetes mellitus type 2 (Chronic) Hyperlipidemia (Chronic) PVC's (Chronic) Medical History ASCVD (arteriosclerotic cardiovascular disease) with MPI 08/21/22 also noted by meat apprentice at visit. Cataracts, both eyes Colon adenoma Depression Diabetes type 2, controlled Last HgA1C 7.1 DJD (degenerative joint disease) History of malignant neoplasm of prostate HTN (hypertension) Hyperlipidemia Low back pain Mild nonproliferative diabetic retinopathy Obesity Prostate cancer PVD (peripheral vascular disease) scarring on chest X-ray Tobacco quit date established March 2016 Surgical History Cataract, left eye (03/13/16) Cristal Torres MD Colonoscopy - IV Sedation [id number] Colonoscopy - MAC (05/09/16) EGD - MAC (08/25/16) Extraction of cataract (02/01/15) Right eye; Dr. Cristal Torres History of surgery Left total knee. Prostatectomy for prostate cancer ORIF left hymerus that was done many years agol. T & A done as a child. I & D perianal abscess (05/07/15) Dr. Beverly Daly Prostectomy, Suprapubic (03/06/97) Dr Dexter, prostate cancer Replacement of total knee joint Right- cemented 05/25/13 Dr. Clarke Lt. -2008 Dr. Clarke synvisc injection rt knee Family History Mother , age 63 Heart disease Father Stroke Social History Smoking/Tobacco Use Status: Former Tobacco Use Tobacco: How many years used: 25 Smoking risk assessment performed?: Yes Alcohol Intake: never Drug use: Never Substance use type: does not use Household members: none Housing: house Number of Children: 0 Communication Needs: Corrective Lenses Do you need help understanding health information?: Rarely How often do you talk on the phone with friends or family?: twice per week How often do you get together with friends or relatives?: twice per week Panel score (0-1 are the most socially isolated patients): 1 What type of physical activity do you participate in: regular exercise and other Details: exercises 3x/week Frequency: 3-4 times per week Seatbelt use: always Drive intox or 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 Working smoke detector in home: Yes Fire extinguisher in home: Yes Carbon monox detector in home: Yes Do you feel safe at home: Yes Do you feel safe in your relationship?: Yes Meds Allergies and Home Medications Allergies Allergy/AdvReac Type Severity Reaction Status Date / Time omeprazole AdvReac Intermediate diarrhea Verified 04/12/23 13:13 atorvastatin calcium AdvReac muscle pain Verified 04/12/23 13:13 [From Lipitor] ezetimibe AdvReac fatique, Verified 04/12/23 13:13 [From Vytorin 10-10] blurred vision lisinopril AdvReac cough Verified 04/12/23 13:13 lovastatin AdvReac muscle pain Verified 04/12/23 13:13 pravastatin AdvReac muscle pain Verified 04/12/23 13:13 simvastatin AdvReac fatique, Verified 04/12/23 13:13 [From Vytorin 10-10] blurred vision Home Medications Medication Instructions Recorded Confirmed Type aspirin 81 mg tablet,delayed 81 mg PO DAILY 05/17/13 04/12/23 History release (Cadence Low Dose Aspirin) lancets 33 gauge (OneTouch Delica #100 ea 05/26/19 04/12/23 Rx Lancets) peg 400-propylene glycol 0.4 %-0.3 1 drp ophthalmic (eye) QID PRN 03/26/20 04/12/23 History % eye drops (Systane Ultra) losartan 25 mg tablet 25 mg PO BID #180 tab-caps 02/27/22 04/12/23 Rx insulin NPH isoph U-100 human 100 See Rx Instructions subcut 03/25/22 04/12/23 Rx unit/mL subcutaneous suspension .COMPLEX #40 mL (Novolin N NPH U-100 Insulin isophane) metformin 500 mg tablet,extended 1,000 mg PO BID #360 tabs 11/06/22 04/12/23 Rx release 24hr metoprolol tartrate 25 mg tablet 12.5 mg PO BID #90 tabs 11/18/22 04/12/23 Rx insulin syringe-needle U-100 0.5 #100 ea 12/08/22 04/12/23 Rx mL 31 gauge x 5/16 (BD Insulin Syringe Ultra-Fine) blood sugar diagnostic #200 strips 12/18/22 04/12/23 Rx slippers #1 ea 12/18/22 04/12/23 Rx compr.stocking,thigh,reg,x-lrg #12 ea 02/17/23 04/12/23 Rx ciprofloxacin HCl 250 mg tablet 250 mg PO BID #14 tabs 03/02/23 04/12/23 Rx gabapentin 300 mg capsule 300 mg PO TID #90 caps 03/27/23 04/12/23 Rx gemfibrozil 600 mg tablet 600 mg PO BID #180 tab-caps 04/02/23 04/12/23 Rx Exam Const General: cooperative, no acute distress and well developed Orientation: alert, awake and oriented x3 HENMT Head: normal to inspection, no palpable skull fracture, normocephalic and atraumatic Ears: hearing grossly normal bilaterally General nose exam: external nose normal Face and sinus: normal facial exam Eyes General: appearance normal, both eyes and all related structures Alignment and Position: alignment normal Periorbital: periorbital findings normal Eyelids: eyelids normal Conjunctivae: conjunctivae normal Sclera: sclerae normal Cornea: corneas normal Pupils: PERRL EOM: EOM intact bilaterally Neck Neck: normal visual inspection, full ROM, no lymphadenopathy, trachea midline, supple and no JVD Carotids: normal carotid upstroke Lymphatic: no lymphadenopathy noted Chest Chest: normal inspection of the chest Resp Effort & Inspection: normal respiratory effort and able to speak in complete sentences Auscultation: clear to auscultation bilaterally Cardio Jugular venous pressure: no JVD Palpation: normal PMI Rate: regular rate Rhythm: abnormal rhythm regularly irregular and with ectopic beats Bruits: no abdominal aortic bruits Pulses: popliteal pulses not present and posterior tibial pulses not present Other: Patient has Doppler pulses over the left posterior tibial but not over the left dorsalis pedis pulse. Right foot has absent dorsalis pedis pulse both by Doppler and palpation and his right posterior tibial pulse is faintly audible by Doppler GI Inspection: normal to inspection Palpation: soft and no hepatosplenomegaly Percussion: normal to percussion Auscultation: normal bowel sounds Back/Spine/Pelvis Back: no CVA tenderness Cervical Spine: normal cervical lordosis Thoracic/Lumbar Spine: thoracic and lumbar spine normal to inspection Skin Wounds: wounds noted ulceration right mid lower leg without odor; no drainage and without any surrounding erythema, ulceration right great toe malodorous, open and other (Gangrenous) Neuro General: patient alert, patient awake and patient oriented x3 Cognition: normal cognition Speech: speech normal Motor: muscle tone normal throughout Sensory Exam: lower extremity bilateral light-touch abnormal in the entire distribution Extrem General: full ROM, capillary refill delayed and cyanosis of the toes Psych Appearance: grossly normal Mental Status: mental status grossly normal Speech and Movement: speech and movement normal Mood: congruent mood Affect: normal affect Attitude: cooperative Thought Process: normal Thought Content: normal Insight: insight good Judgment: judgment good Results Imaging Chest x-ray: report reviewed EKG: image reviewed Labs 04/12/23 14:10 04/12/23 14:10 Labs: Laboratory Results - last 24 hr 04/12/23 04/12/23 04/12/23 14:10 14:10 14:10 WBC 14.55 H RBC 4.00 L Hgb 11.8 L Hct 35.6 L MCV 89 MCH 29.5 MCHC 33.1 RDW 12.8 Plt Count 351 MPV 9.0 Immature Gran % 0.6 Neutrophils % 77.9 Lymphocytes % 10.4 Monocytes % 10.0 Eosinophils % 0.8 Basophils % 0.3 Nucleated RBC % 0.0 Absolute Neutrophils 11.33 H Absolute Lymphocytes 1.51 Absolute Monocytes 1.46 H Absolute Eosinophils 0.12 Absolute Basophils 0.04 PT INR APTT D-Dimer 1900 H Sodium 135 L Potassium 3.5 Chloride 98 Carbon Dioxide 28.7 Anion Gap 8.3 BUN 42 H Creatinine 1.3 Est GFR (CKD-EPI 2020) 53.17 Glucose 173 H Calcium 9.6 Magnesium 2.0 Total Bilirubin 0.4 AST 26 ALT 35 Alkaline Phosphatase 105 Troponin I 1815 H* NT-Pro-B Natriuret Pep 1775 H Total Protein 7.5 Albumin 2.6 L 04/12/23 04/12/23 04/12/23 15:32 16:00 16:24 WBC RBC Hgb Hct MCV MCH MCHC RDW Plt Count MPV Immature Gran % Neutrophils % Lymphocytes % Monocytes % Eosinophils % Basophils % Nucleated RBC % Absolute Neutrophils Absolute Lymphocytes Absolute Monocytes Absolute Eosinophils Absolute Basophils PT 13.2 H INR 1.3 H APTT 91.6 H* D-Dimer Sodium Cancelled Potassium Cancelled Chloride Cancelled Carbon Dioxide Cancelled Anion Gap Cancelled BUN Cancelled Creatinine Cancelled Est GFR (CKD-EPI 2020) Cancelled Glucose Cancelled Calcium Cancelled Magnesium Total Bilirubin Cancelled AST Cancelled ALT Cancelled Alkaline Phosphatase Cancelled Troponin I Cancelled 1521 H* NT-Pro-B Natriuret Pep Total Protein Cancelled Albumin Cancelled 04/12/23 18:32 WBC RBC Hgb Hct MCV MCH MCHC RDW Plt Count MPV Immature Gran % Neutrophils % Lymphocytes % Monocytes % Eosinophils % Basophils % Nucleated RBC % Absolute Neutrophils Absolute Lymphocytes Absolute Monocytes Absolute Eosinophils Absolute Basophils PT INR APTT D-Dimer Sodium Potassium Chloride Carbon Dioxide Anion Gap BUN Creatinine Est GFR (CKD-EPI 2020) Glucose Calcium Magnesium Total Bilirubin AST ALT Alkaline Phosphatase Troponin I Cancelled NT-Pro-B Natriuret Pep Total Protein Albumin Last Vital Signs Temp 36.4 C L 04/12/23 17:25 Pulse 89 04/12/23 18:01 Resp 31 H 04/12/23 18:01 BP 118/53 L 04/12/23 18:01 Pulse Ox 99 04/12/23 13:04 Time Spent Time spent with Patient: 55-74 minutes Time was spent: preparing to see the patient(eg.review tests), obtaining and/or reviewing separately otained hiistory, ordering medications,tests, procedures, referring, communicating with other health personal carer, indepentently interpreting results, counseling the patient and care coordination
[2023-04-12 20:13] LABS: Troponin I 1504 ng/L (<or=60)
--- NOTE | 2023-04-12 20:14 | DSE_ITS ---
Date of service: 04/12/23 Time of Service: 20:15 DS: Diagnosis Discharge Diagnosis (1) NSTEMI (non-ST elevated myocardial infarction): Status: Acute (2) Gangrenous toe: Status: Acute (3) Ventricular bigeminy: Status: Acute (4) Diabetes mellitus type 2: Status: Chronic (5) Chronic kidney disease: Status: Chronic (6) HTN (hypertension): (7) PVD (peripheral vascular disease): Status: Acute (8) Venous stasis ulcer limited to breakdown of skin with varicose veins: Status: Acute (9) Leg wound, right: Status: Acute (10) Hyperlipidemia: Status: Chronic Discharge Plan Disposition Specific Acute Inpt Facility: [facility] Condition: Stable Discharge Details Reason For Visit: NSTEMI Admit Date/Time: 04/12/23 15:59 Admit Provider: Corey Lambert Attending Provider: Corey Lambert Primary Care Provider: [facility] Course Hospital Course: 87 male with h/o CAD, DM, HTN -- presented today with several days of intermittent bilateral shoulder pain. Work up of note for troponin 1521, EKG with delayed R-wave progression but no acute STTW changes. Patient received diagnosis of NSTEMI and was started on heparin infusion, NTG infusion and given doses of ASA 325, Plavix 300 and Lopressor 12.5. Patient was not given statin due to history of allergy. Cardiology [facility] [place] was consulted and accepted patient in transfer. Home Meds and New Rx's Prescriptions: No Action (DME) lancets [OneTouch Delica Lancets] 33 gauge misc 1 ea Miscellaneous DAILY Qty: 100 3RF Rx Instructions: to check BS for DM E11.9 management to keep A1c <8. (DME) slippers See Rx Instructions .Route .MEDSUPPLY Qty: 1 1RF Rx Instructions: Patient had fall, slipped. Bled onto slippers, needs new pair. (DME) compr.stocking,thigh,reg,x-lrg Misc See Rx Instructions .Route Qty: 12 0RF Rx Instructions: As directed Systane Ultra 0.4-0.3 % drops 1 drp OP QID PRN Rx Instructions: per after visit summary 03/23/20 [facility] losartan 25 mg tablet 25 mg PO BID Qty: 180 3RF Rx Instructions: for bp control under 140/80 Novolin N NPH U-100 Insulin 100 unit/mL suspension See Rx Instructions SC .COMPLEX Qty: 40 12RF Rx Instructions: subcut t10 units qnoon and 50 units qhs; To keep HbA1c below 6.5 metformin 500 mg tablet extended release 24hr 1,000 mg PO BID Qty: 360 3RF metoprolol tartrate 25 mg tablet 12.5 mg PO BID Qty: 90 3RF Rx Instructions: 0.5 of a 25 mg tablet, twice daily, for BP (DME) insulin syringe-needle U-100 [BD Insulin Syringe Ultra-Fine] 0.5 mL 31 gauge x 5/16 syringe See Dose Instructions .ROUTE .MEDSUPPLY Qty: 100 6RF Dose Instruction: As directed Rx Instructions: to administer Novolin N daily at 7 pm (DME) blood sugar diagnostic Strip 1 ea Miscellaneous BID Qty: 200 11RF Rx Instructions: For DM E11.39 to test blood sugar BID and maintain A1C less than 7 ciprofloxacin HCl 250 mg tablet 250 mg PO BID Qty: 14 0RF gabapentin 300 mg capsule 300 mg PO TID Qty: 90 0RF Rx Instructions: Start 1 tab QD; increase to q12 if tolerated after 3 days, then increase to q8 after 3 more gemfibrozil 600 mg tablet 600 mg PO BID Qty: 180 3RF Rx Instructions: for lipids and vascular disease aspirin [Cadence Low Dose Aspirin] 81 MG tablet,delayed release (DR/EC) 81 mg PO DAILY Discharge Data Discharge Physician: Elva Stanton DS: Summary Time Spent with Patient providing and/or coordinating discharge services: Less than 30 minutes Status at Discharge Functional status at discharge: bed bound Overall status at discharge: patient is not back to baseline Mental Status: mental status grossly normal Speech and Movement: speech and movement normal Mood: congruent mood Affect: normal affect Exam Psych Mental Status: mental status grossly normal Speech and Movement: speech and movement normal Mood: congruent mood Affect: normal affect DS: Data Vitals/I&O Vitals and I&O: Vital Signs Temperature 36.4 C L 04/12/23 17:25 Temperature Source Temporal Artery Scan 04/12/23 17:25 Pulse 65 04/12/23 19:31 Pulse 99 H 04/12/23 19:31 Respiratory Rate 19 04/12/23 19:31 Respiratory Effort Normal, Non-Labored 04/12/23 17:25 Respiratory Depth Normal 04/12/23 17:25 Respiratory Pattern Normal 04/12/23 17:25 Blood Pressure 134/52 L 04/12/23 19:31 Blood Pressure Mean 69 04/12/23 19:31 Blood Pressure Position Supine 04/12/23 17:25 Pulse Oximetry 99 04/12/23 13:04 Oxygen Delivery Method Room Air 04/12/23 17:25 Oxygen Flow Rate 0 04/12/23 17:25 Pain Level 8 04/12/23 17:25 Intake & Output 04/11/23 04/12/23 04/12/23 23:59 11:59 23:59 Intake Total 125.8 / 125.8 Balance 125.8 / 125.8 Weight 96.6 kg Intake: IV 125.8 / 125.8 Data Completed and Pending Labs on day of discharge: Labs from last 24 hours 04/12/23 04/12/23 04/12/23 18:59 18:32 16:24 WBC RBC Hgb Hct MCV MCH MCHC RDW Plt Count MPV Immature Gran % Neutrophils % Lymphocytes % Monocytes % Eosinophils % Basophils % Nucleated RBC % Absolute Neutrophils Absolute Lymphocytes Absolute Monocytes Absolute Eosinophils Absolute Basophils PT INR APTT D-Dimer Sodium Potassium Chloride Carbon Dioxide Anion Gap BUN Creatinine Est GFR (CKD-EPI 2020) Glucose Calcium Magnesium Total Bilirubin AST ALT Alkaline Phosphatase Troponin I 1504 H* Cancelled 1521 H* NT-Pro-B Natriuret Pep Total Protein Albumin 04/12/23 04/12/23 04/12/23 16:00 15:32 14:10 WBC RBC Hgb Hct MCV MCH MCHC RDW Plt Count MPV Immature Gran % Neutrophils % Lymphocytes % Monocytes % Eosinophils % Basophils % Nucleated RBC % Absolute Neutrophils Absolute Lymphocytes Absolute Monocytes Absolute Eosinophils Absolute Basophils PT 13.2 H INR 1.3 H APTT 91.6 H* D-Dimer 1900 H Sodium Cancelled Potassium Cancelled Chloride Cancelled Carbon Dioxide Cancelled Anion Gap Cancelled BUN Cancelled Creatinine Cancelled Est GFR (CKD-EPI 2020) Cancelled Glucose Cancelled Calcium Cancelled Magnesium Total Bilirubin Cancelled AST Cancelled ALT Cancelled Alkaline Phosphatase Cancelled Troponin I Cancelled NT-Pro-B Natriuret Pep Total Protein Cancelled Albumin Cancelled 04/12/23 04/12/23 14:10 14:10 WBC 14.55 H RBC 4.00 L Hgb 11.8 L Hct 35.6 L MCV 89 MCH 29.5 MCHC 33.1 RDW 12.8 Plt Count 351 MPV 9.0 Immature Gran % 0.6 Neutrophils % 77.9 Lymphocytes % 10.4 Monocytes % 10.0 Eosinophils % 0.8 Basophils % 0.3 Nucleated RBC % 0.0 Absolute Neutrophils 11.33 H Absolute Lymphocytes 1.51 Absolute Monocytes 1.46 H Absolute Eosinophils 0.12 Absolute Basophils 0.04 PT INR APTT D-Dimer Sodium 135 L Potassium 3.5 Chloride 98 Carbon Dioxide 28.7 Anion Gap 8.3 BUN 42 H Creatinine 1.3 Est GFR (CKD-EPI 2020) 53.17 Glucose 173 H Calcium 9.6 Magnesium 2.0 Total Bilirubin 0.4 AST 26 ALT 35 Alkaline Phosphatase 105 Troponin I 1815 H* NT-Pro-B Natriuret Pep 1775 H Total Protein 7.5 Albumin 2.6 L PFSH All Active Problems (Updated 04/12/23 @ 20:12 by Corey Lambert MD) Gangrenous toe (Acute) Leukocytosis, unspecified (Acute) Ventricular bigeminy (Acute) NSTEMI (non-ST elevated myocardial infarction) (Acute) Leg wound, right (Acute) Venous stasis ulcer limited to breakdown of skin with varicose veins (Acute) Diabetic foot ulcer (Acute) Open wounds involving multiple regions of lower extremity without complication (Acute) Onychomycosis of multiple toenails with type 2 diabetes mellitus (Acute 12/09/22) Ingrowing nail (Acute 12/09/22) Nail dystrophy (Acute 12/09/22) Pseudophakia (Acute) Posterior vitreous detachment, left eye (Acute) Age-related macular degeneration, dry (Chronic) left eye, early right eye without fld both eyes 01/2022 Hepatic steatosis (Acute) Chronic kidney disease (Chronic) Other atherosclerosis of [place] arteries of extremities, bilateral legs (Acute) Nonproliferative diabetic retinopathy without macular edema associated with type 2 diabetes mellitus (Acute) Nocturnal leg cramps (Acute) Seborrheic keratoses (Acute) 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) Low back pain (Acute 09/17/11) Activity intolerance related to fatigue (Acute 09/17/11) Cortical senile cataract (Acute 09/17/11) Localized osteoarthrosis, lower leg (Acute 09/17/11) PVD (peripheral vascular disease) (Acute 09/17/11) Primary malignant neoplasm of prostate (Acute 03/06/97) Sleep disorder (Chronic 07/15/13) Never okay, due to awakening 2AM 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 Clarke 05-25-2013 History of - myocardial infarction (Chronic) [place] Diabetes mellitus type 2 (Chronic) Hyperlipidemia (Chronic) PVC's (Chronic) Medical History ASCVD (arteriosclerotic cardiovascular disease) with MPI 08/21/22 also noted by account general manager at visit. Cataracts, both eyes Colon adenoma Depression Diabetes type 2, controlled Last HgA1C 7.1 DJD (degenerative joint disease) History of malignant neoplasm of prostate HTN (hypertension) Hyperlipidemia Low back pain Mild nonproliferative diabetic retinopathy Obesity Prostate cancer PVD (peripheral vascular disease) scarring on chest X-ray Tobacco quit date established March 2016 Surgical History Cataract, left eye (03/13/16) Cristal Torres MD Colonoscopy - IV Sedation [id number] Colonoscopy - MAC (05/09/16) EGD - MAC (08/25/16) Extraction of cataract (02/01/15) Right eye; Dr. Cristal Torres History of surgery Left total knee. Prostatectomy for prostate cancer ORIF left hymerus that was done many years agol. T & A done as a child. I & D perianal abscess (05/07/15) Dr. Beverly Daly Prostectomy, Suprapubic (03/06/97) Dr Dexter, prostate cancer Replacement of total knee joint Right- cemented 05/25/13 Dr. Clarke Lt. -2008 Dr. Clarke synvisc injection rt knee Family History Mother , age 63 Heart disease Father Stroke Social History Smoking/Tobacco Use Status: Former Tobacco Use Tobacco: How many years used: 25 Smoking risk assessment performed?: Yes Alcohol Intake: never Drug use: Never Substance use type: does not use Household members: none Housing: house Number of Children: 0 Communication Needs: Corrective Lenses Do you need help understanding health information?: Rarely How often do you talk on the phone with friends or family?: twice per week How often do you get together with friends or relatives?: twice per week Panel score (0-1 are the most socially isolated patients): 1 What type of physical activity do you participate in: regular exercise and other Details: exercises 3x/week Frequency: 3-4 times per week Seatbelt use: always Drive intox or ride w/intox 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
[2023-04-12] MEDS: Acetaminophen 325 MG TAB PO (21:46)
[2023-04-12] MEDS: Gabapentin 300 MG CAP PO (21:47)
[2023-04-12 21:56] LABS: Procalcitonin 0.1 ng/mL
[2023-04-12] MEDS: Ciprofloxacin 250 MG TAB PO (21:56)
== END 2023-04-12 22:35 | disposition short-term general hospital (02) | DRG 281 ==
LOC: ER 16:25 → ICU 17:15
PROVIDERS: Admitting Provider Internal Medicine; Emergency Provider Emergency Medicine Emergency Medical Services; PCP Family Medicine; Visit Provider Internal Medicine
DX: I21.4 Non-ST elevation (NSTEMI) myocardial infarction (principal); E11.52 Type 2 diabetes mellitus with diabetic peripheral angiopathy with gangrene; L97.811 Non-pressure chronic ulcer of other part of right lower leg limited to breakdown of skin; I96 Gangrene, not elsewhere classified; L97.518 Non-pressure chronic ulcer of other part of right foot with other specified severity; E11.22 Type 2 diabetes mellitus with diabetic chronic kidney disease; N18.9 Chronic kidney disease, unspecified; I12.9 Hypertensive chronic kidney disease with stage 1 through stage 4 chronic kidney disease, or unspecified chronic kidney disease; E11.621 Type 2 diabetes mellitus with foot ulcer; E11.3293 Type 2 diabetes mellitus with mild nonproliferative diabetic retinopathy without macular edema, bilateral; E11.40 Type 2 diabetes mellitus with diabetic neuropathy, unspecified; I83.018 Varicose veins of right lower extremity with ulcer other part of lower leg; K76.0 Fatty (change of) liver, not elsewhere classified; I49.3 Ventricular premature depolarization; R00.8 Other abnormalities of heart beat; I70.203 Unspecified atherosclerosis of native arteries of extremities, bilateral legs; M54.50 Low back pain, unspecified; G47.9 Sleep disorder, unspecified; I25.10 Atherosclerotic heart disease of native coronary artery without angina pectoris; Z96.651 Presence of right artificial knee joint; E78.5 Hyperlipidemia, unspecified; I83.92 Asymptomatic varicose veins of left lower extremity; E66.9 Obesity, unspecified; I25.2 Old myocardial infarction; D72.829 Elevated white blood cell count, unspecified; Z68.33 Body mass index [BMI] 33.0-33.9, adult; Z85.46 Personal history of malignant neoplasm of prostate; Z79.84 Long term (current) use of oral hypoglycemic drugs; Z79.4 Long term (current) use of insulin; Z87.891 Personal history of nicotine dependence
CPT/HCPCS: 80053; 84145; 87040; 87077; 93005; 96365; 96366; 96368; 96375; 99291; 71045; 83735; 83880; 84484; 85025; 85379; 85610; 85730; 87186; 93010; J0131; J1644; J3490